=== PATIENT | male | born 1985 | race Caucasian/White ===

== ENCOUNTER 2016-02-21 23:31 | Emergency (ER) | payer SELFPAY ==
[2016-02-22] MEDS ORDERED: NS 0.9% 1000 ML* 1,000 ML IV ONE (00:04)
[2016-02-22 00:37] LABS: Hematocrit 42 % (42-52); Hemoglobin 13.7 g/dl (14.0-18.0); Mean Corpuscular HGB Conc 33 g/dl (31-36); Mean Corpuscular Hemoglobin 28 pg (27-31); Mean Corpuscular Volume 83 fL (80-94); Mean Platelet Volume 9 um3 (7.4-10.4); Red Cell Distribution Width 15 % (10.5-15); White Blood Count 8.4 10^3/ul (3.5-10.8)
[2016-02-22 00:53] LABS: Albumin 4.3 g/dL (3.2-5.2); BUN/Creatinine Ratio 9.2 (8-20); Calcium 9.2 mg/dL (8.6-10.3); EGFR African American 157.1 (>60); EGFR Non-African American 122.1 (>60); Globulin 2.2 g/dL (2-4); Magnesium 2.1 mg/dL (1.9-2.7); Potassium 3.6 mmol/L (3.5-5.0); Total Bilirubin 0.5 mg/dL (0.2-1.0); Total Protein 6.5 g/dL (6.4-8.9)
[2016-02-22 01:35] VITALS: BP 114/67
--- NOTE | 2016-02-22 01:49 | ED ---
Maxim Cabral Benjamin, scribed for Niki Arnold MD on 02/22/16 at 0032 . Syncope/Near Syncope - HPI Summary HPI Summary: 30yo male who had a syncopal episode 60-90 minutes ago with unknown down time. While in a sofa shortly after in an argument. Pt reports minor frontal head trauma but reports no NA. Pt reports room spinning before the episode. Also reports dizziness and sinus infection 1 week ago, and leg weakness for couple of weeks. Pt has hx of brain tumor, which pt received 8 courses of radiation therapy and was told growth has stopped but never followed up since. Pt reports having syncopal episode once before 6 yrs ago while at rest. - History Of Current Complaint Chief Complaint: EDSyncope Time Seen by Provider: 02/22/16 00:03 Hx Obtained From: Patient Onset/Duration: Sudden Onset, Resolved Timing: Constant Context: Unwitnessed, Loss Of Consciousness Activity At Onset: At Rest Associated Head Trauma: Yes Aggravating Factor(s): Nothing Alleviating Factor(s): Spontaneous Resolution Associated Signs And Symptoms: Dizzy - 1 week ago - Allergies/Home Medications Allergies/Adverse Reactions: Allergies Allergy/AdvReac Type Severity Reaction Status Date / Time No Known Allergies Allergy Verified 02/21/16 23:49 Home Medications: Home Medications NK [No Home Medications Reported] 02/21/16 [History Confirmed 02/21/16] PMH/Surg Hx/FS Hx/Imm Hx Neurological History: Reports: Other Neuro Impairments/Disorders - brain tumor, s/p radiation therapy on 2008 - Cancer History Cancer Type, Location and Year: brain tumor 2008 Hx Radiation Therapy: Yes - 2008. brain tumor Infectious Disease History: No Infectious Disease History: Denies: Traveled Outside the [place] in Last 30 Days - Family History Known Family History: Positive: Hypertension Negative: Cardiac Disease, Diabetes - Social History Occupation: Employed Full-time Lives: Alone Alcohol Use: None Substance Use Type: Reports: Marijuana Substance Use Comment - Amount & Last Used: bowl a day Smoking Status (MU): Light Every Day Tobacco Smoker Review of Systems Constitutional: Negative Eyes: Negative ENT: Negative Cardiovascular: Negative Respiratory: Negative Gastrointestinal: Negative Genitourinary: Negative Musculoskeletal: Negative Skin: Negative Neurological: Other - dizziness Positive: Weakness - leg, Syncope Psychological: Normal All Other Systems Reviewed And Are Negative: Yes Physical Exam Triage Information Reviewed: Yes Vital Signs On Initial Exam: Initial Vitals Temp Pulse Resp BP Pulse Ox 99.8 F 65 17 119/73 98 02/21/16 23:45 02/21/16 23:45 02/21/16 23:45 02/21/16 23:45 02/21/16 23:45 Vital Signs Reviewed: Yes Appearance: Positive: Well-Appearing, No Pain Distress, Well-Nourished Skin: Positive: Warm, Skin Color Reflects Adequate Perfusion, Dry Head/Face: Positive: Normal Head/Face Inspection Eyes: Positive: EOMI, PAULA ENT: Positive: Pharynx normal, TMs normal Neck: Positive: Supple, Nontender Respiratory/Lung Sounds: Positive: Clear to Auscultation, Breath Sounds Present Cardiovascular: Positive: RRR Abdomen Description: Positive: Nontender, Soft Bowel Sounds: Positive: Present Musculoskeletal: Positive: Strength/ROM Intact Neurological: Positive: Sensory/Motor Intact, Alert, Oriented to Person Place, Time, CN Intact II-III Psychiatric: Positive: Affect/Mood Appropriate - [place] Coma Scale Coma Scale Total: 15 Diagnostics - Vital Signs Vital Signs Temp Pulse Resp BP Pulse Ox 02/21/16 23:59 56 13 99 02/21/16 23:50 74 12 119/73 99 02/21/16 23:45 99.8 F 65 17 119/73 98 - Laboratory Lab Results: Lab Results 02/22/16 02/22/16 Range/Units 00:25 00:25 WBC 8.4 (3.5-10.8) 10^3/ul RBC 5.00 (4.0-5.4) 10^6/ul Hgb 13.7 L (14.0-18.0) g/dl Hct 42 (42-52) % MCV 83 (80-94) fL MCH 28 (27-31) pg MCHC 33 (31-36) g/dl RDW 15 (10.5-15) % Plt Count 135 L (150-450) 10^3/ul MPV 9 (7.4-10.4) um3 Neut % (Auto) 71.6 (38-83) % Lymph % (Auto) 20.3 L (25-47) % [place] % (Auto) 6.5 (1-9) % Eos % (Auto) 1.0 (0-6) % Baso % (Auto) 0.6 (0-2) % Absolute Neuts (auto) 6.0 (1.5-7.7) 10^3/ul Absolute Lymphs (auto) 1.7 (1.0-4.8) 10^3/ul Absolute Monos (auto) 0.5 (0-0.8) 10^3/ul Absolute Eos (auto) 0.1 (0-0.6) 10^3/ul Absolute Basos (auto) 0.1 (0-0.2) 10^3/ul Absolute Nucleated RBC 0 10^3/ul Nucleated RBC % 0 Sodium 139 (133-145) mmol/L Potassium 3.6 (3.5-5.0) mmol/L Chloride 107 (101-111) mmol/L Carbon Dioxide 27 (22-32) mmol/L Anion Gap 5 (2-11) mmol/L BUN 7 (6-24) mg/dL Creatinine 0.76 (0.67-1.17) mg/dL Est GFR ( Amer) 157.1 (>60) Est GFR (Non-Af Amer) 122.1 (>60) BUN/Creatinine Ratio 9.2 (8-20) Glucose 94 (70-100) mg/dL Calcium 9.2 (8.6-10.3) mg/dL Magnesium 2.1 (1.9-2.7) mg/dL Total Bilirubin 0.50 (0.2-1.0) mg/dL AST 19 (13-39) U/L ALT 17 (7-52) U/L Alkaline Phosphatase 40 (34-104) U/L Total Protein 6.5 (6.4-8.9) g/dL Albumin 4.3 (3.2-5.2) g/dL Globulin 2.2 (2-4) g/dL Albumin/Globulin Ratio 2.0 (1-3) Result Diagrams: 02/22/16 00:25 02/22/16 00:25 Lab Statement: Any lab studies that have been ordered have been reviewed, and results considered in the medical decision making process. - CT CT Brain CT Interpretation: No Acute Changes CT Interpretation Completed By: Radiologist - EKG 2355 Cardiac Rate: NL EKG Rhythm: Sinus Rhythm ST Segment: Normal Ectopy: None Course/Dx Course Of Treatment: 30 yo with hx of benign brain tumor many years ago here with syncope after argument with girlfriend labs, ekg and ct brain normal. Pt is well appearing and feels fine - Diagnoses Provider Diagnoses: Syncope Discharge - Discharge Plan Condition: Stable Disposition: HOME Patient Education Materials: Syncope (ED) The documentation as recorded by the Maxim lyons Benjamin accurately reflects the service I personally performed and the decisions made by me, Niki Arnold MD.
--- NOTE | 2016-02-22 07:18 | RAD ---
INDICATION: Intracranial injury COMPARISON: None TECHNIQUE: Noncontrast axial source images were acquired from the skull base to the vertex. FINDINGS: Ventricles/sulci: The ventricles and cisterns are normal in size and configuration for age. Brain parenchyma: There is no focal parenchymal finding, evidence of intracranial mass, or intracranial mass effect. Intracranial hemorrhage:None. Extra-axial spaces: There are no abnormal extra axial fluid collections or evidence of extra-axial mass. Calvarium: There is no calvarial fracture or other calvarial abnormality. Scalp: There is no evidence of scalp or extracalvarial soft tissue abnormality. Paranasal sinuses/mastoid: The paranasal sinuses and mastoid air cells are clear. Other: None. IMPRESSION: NEGATIVE EXAMINATION
== END 2016-02-22 02:11 | disposition home or self-care (01) ==
LOC: ED 23:31
DX: R55 Syncope and collapse (principal); F17.200 Nicotine dependence, unspecified, uncomplicated
CPT/HCPCS: 36415; 70450; 80053; 83735; 85025; 93005; 99283

== ENCOUNTER 2016-03-01 12:31 | Inpatient (IN) | payer SELFPAY ==
[2016-03-01 13:01] LABS: Urine Bilirubin Negative (Negative); Urine Glucose Negative (Negative); Urine Nitrite Negative (Negative)
[2016-03-01 13:08] LABS: Hematocrit 45 % (42-52); Hemoglobin 14.9 g/dl (14.0-18.0); Mean Corpuscular HGB Conc 33 g/dl (31-36); Mean Corpuscular Hemoglobin 28 pg (27-31); Mean Corpuscular Volume 83 fL (80-94); Mean Platelet Volume 9 um3 (7.4-10.4); Red Blood Count 5.43 10^6/ul (4.0-5.4); Red Cell Distribution Width 14 % (10.5-15); White Blood Count 6.1 10^3/ul (3.5-10.8)
[2016-03-01 13:18] LABS: Benzodiazepine Urine Screen None Detected (None Detect)
[2016-03-01 13:23] LABS: ALT 14 U/L (7-52); AST 16 U/L (13-39); Albumin 4.7 g/dL (3.2-5.2); Alkaline Phosphatase 47 U/L (34-104); Anion Gap 4 mmol/L (2-11); BUN/Creatinine Ratio 14.8 (8-20); Blood Urea Nitrogen 12 mg/dL (6-24); CO2 Carbon Dioxide 28 mmol/L (22-32); Calcium 9.4 mg/dL (8.6-10.3); Chloride 107 mmol/L (101-111); EGFR African American 145.9 (>60); EGFR Non-African American 113.5 (>60); Globulin 2.3 g/dL (2-4); Glucose 105 mg/dL (70-100); Potassium 3.9 mmol/L (3.5-5.0); Sodium 139 mmol/L (133-145)
[2016-03-01 13:51] LABS: Acetaminophen < 15 mcg/mL; Alcohol < 10 mg/dL (<10); Salicylate < 2.50 mg/dL (<30)
[2016-03-01 14:00] LABS: TSH (Thyroid Stimulating Horm) 1.07 mcIU/mL (0.34-5.60)
[2016-03-01] MEDS ORDERED: Nicotine Inhaler* 10 MG AMP ONE (17:59)
[2016-03-01] MEDS ORDERED: Mouth Piece, Nicotine* 1 EACH CARTRIDGE ONE (17:59)
[2016-03-01] MEDS ORDERED: Nicotine GUM* 2 MG PO PRN (18:07)
[2016-03-01] MEDS ORDERED: LORazepam TAB(*) 1 MG PO ONE ×2 (18:09→21:00)
[2016-03-01] MEDS: Nicotine Inhaler* 10 MG AMP INH PRN (18:19)
[2016-03-01] MEDS: chlorproMAZINE TAB* 50 MG PO PRN (18:19)
--- NOTE | 2016-03-01 20:27 | ED ---
Tanya Cabral Janilya, scribed for Niki Arnold MD on 03/01/16 at 1540 . Psychiatric Complaint - HPI Summary HPI Summary: A 30 y/o male came in to [facility] for a psychiatric complaint. Pt was sent here for evaluation by [facility]. Pt had prior suicidal attempts in the past w/ overdose and gun use. However, pt now states that he does not feel suicidal. Pt denies hearing voices. There are no guns in the house. SHx tobacco use, but he has recently quit. - History Of Current Complaint Chief Complaint: EDMentalHealth Time Seen by Provider: 03/01/16 12:37 Hx Obtained From: Patient Onset/Duration: Gradual Onset, Lasting Days, Still Present Timing: Constant Severity Initially: Moderate Severity Currently: Moderate Character: Anxious Aggravating Factor(s): Nothing Alleviating Factor(s): Nothing Associated Signs And Symptoms: Negative: Hallucinating Related History: Positive For: Prior Psychiatric Issues Has Suicidal: Denies: Thoughts, With A Plan Has Homicidal: Denies: Thoughts, With A Plan - Risk Factor(s) Completed Suicide Risk Factors: Male, Past Suicide Attempt - Allergies/Home Medications Allergies/Adverse Reactions: Allergies Allergy/AdvReac Type Severity Reaction Status Date / Time No Known Allergies Allergy Verified 02/21/16 23:49 PMH/Surg Hx/FS Hx/Imm Hx Respiratory History: Reports: Hx Asthma Neurological History: Reports: Other Neuro Impairments/Disorders - brain tumor, s/p radiation therapy on 2008 Psychiatric History: Reports: Hx Suicide Attempt - Cancer History Cancer Type, Location and Year: brain tumor 2008 Hx Radiation Therapy: Yes - 2008. brain tumor Infectious Disease History: No Infectious Disease History: Denies: Traveled Outside the [place] in Last 30 Days - Family History Known Family History: Positive: Hypertension Negative: Cardiac Disease, Diabetes - Social History Occupation: Employed Full-time - cook Lives: With Family - parents Alcohol Use: None Substance Use Type: Reports: Marijuana Substance Use Comment - Amount & Last Used: bowl a day Smoking Status (MU): Light Every Day Tobacco Smoker Review of Systems Negative: Fever Psychological: Other - SI and suicide attempts this past month Positive: Anxious All Other Systems Reviewed And Are Negative: Yes Physical Exam Triage Information Reviewed: Yes Vital Signs On Initial Exam: Initial Vitals Temp Pulse Resp BP Pulse Ox 98.7 F 52 16 123/72 98 03/01/16 13:25 03/01/16 13:25 03/01/16 13:25 03/01/16 13:25 03/01/16 13:25 Vital Signs Reviewed: Yes Appearance: Positive: Well-Appearing, No Pain Distress Skin: Positive: Warm, Skin Color Reflects Adequate Perfusion, Dry Eyes: Positive: EOMI, PAULA ENT: Positive: Pharynx normal, TMs normal Neck: Positive: Supple, Nontender Respiratory/Lung Sounds: Positive: Clear to Auscultation, Breath Sounds Present. Negative: Rales, Rhonchi - no wheezes Cardiovascular: Positive: RRR. Negative: Murmur, Rub - no gallops Abdomen Description: Positive: Nontender, Soft. Negative: Distended, Guarding - no rebound Bowel Sounds: Positive: Present Musculoskeletal: Positive: Strength/ROM Intact. Negative: Edema Left, Edema Right Neurological: Positive: Sensory/Motor Intact, Alert, Oriented to Person Place, Time, CN Intact II-III Psychiatric: Positive: Affect/Mood Appropriate - [place] Coma Scale Coma Scale Total: 15 Diagnostics - Vital Signs Vital Signs Temp Pulse Resp BP Pulse Ox 03/01/16 13:25 98.7 F 52 16 123/72 98 - Laboratory Lab Results: Lab Results 03/01/16 03/01/16 03/01/16 Range/Units 12:37 12:37 12:50 WBC 6.1 (3.5-10.8) 10^3/ul RBC 5.43 H (4.0-5.4) 10^6/ul Hgb 14.9 (14.0-18.0) g/dl Hct 45 (42-52) % MCV 83 (80-94) fL MCH 28 (27-31) pg MCHC 33 (31-36) g/dl RDW 14 (10.5-15) % Plt Count 149 L (150-450) 10^3/ul MPV 9 (7.4-10.4) um3 Neut % (Auto) 72.7 (38-83) % Lymph % (Auto) 17.1 L (25-47) % [place] % (Auto) 8.6 (1-9) % Eos % (Auto) 0.9 (0-6) % Baso % (Auto) 0.7 (0-2) % Absolute Neuts (auto) 4.5 (1.5-7.7) 10^3/ul Absolute Lymphs (auto) 1.1 (1.0-4.8) 10^3/ul Absolute Monos (auto) 0.5 (0-0.8) 10^3/ul Absolute Eos (auto) 0.1 (0-0.6) 10^3/ul Absolute Basos (auto) 0 (0-0.2) 10^3/ul Absolute Nucleated RBC 0 10^3/ul Nucleated RBC % 0 Sodium (133-145) mmol/L Potassium (3.5-5.0) mmol/L Chloride (101-111) mmol/L Carbon Dioxide (22-32) mmol/L Anion Gap (2-11) mmol/L BUN (6-24) mg/dL Creatinine (0.67-1.17) mg/dL Est GFR ( Amer) (>60) Est GFR (Non-Af Amer) (>60) BUN/Creatinine Ratio (8-20) Glucose (70-100) mg/dL Calcium (8.6-10.3) mg/dL Total Bilirubin (0.2-1.0) mg/dL AST (13-39) U/L ALT (7-52) U/L Alkaline Phosphatase (34-104) U/L Total Protein (6.4-8.9) g/dL Albumin (3.2-5.2) g/dL Globulin (2-4) g/dL Albumin/Globulin Ratio (1-3) TSH (0.34-5.60) mcIU/mL Urine Color Yellow Urine Appearance Clear Urine pH 7.0 (5-9) Ur Specific [place] 1.019 (1.010-1.030) Urine Protein Negative (Negative) Urine Ketones Negative (Negative) Urine Blood Negative (Negative) Urine Nitrate Negative (Negative) Urine Bilirubin Negative (Negative) Urine Urobilinogen Negative (Negative) Ur Leukocyte Esterase Negative (Negative) Urine Glucose Negative (Negative) Salicylates (<30) mg/dL Urine Opiates Screen None detected (None Detect) Acetaminophen mcg/mL Ur Barbiturates Screen None detected (None Detect) Ur Phencyclidine Scrn None detected (None Detect) Ur Amphetamines Screen None detected (None Detect) U Benzodiazepines Scrn None detected (None Detect) Urine Cocaine Screen None detected (None Detect) U Cannabinoids Screen Presumptive positive H (None Detect) Serum Alcohol (<10) mg/dL 03/01/16 Range/Units 12:50 WBC (3.5-10.8) 10^3/ul RBC (4.0-5.4) 10^6/ul Hgb (14.0-18.0) g/dl Hct (42-52) % MCV (80-94) fL MCH (27-31) pg MCHC (31-36) g/dl RDW (10.5-15) % Plt Count (150-450) 10^3/ul MPV (7.4-10.4) um3 Neut % (Auto) (38-83) % Lymph % (Auto) (25-47) % [place] % (Auto) (1-9) % Eos % (Auto) (0-6) % Baso % (Auto) (0-2) % Absolute Neuts (auto) (1.5-7.7) 10^3/ul Absolute Lymphs (auto) (1.0-4.8) 10^3/ul Absolute Monos (auto) (0-0.8) 10^3/ul Absolute Eos (auto) (0-0.6) 10^3/ul Absolute Basos (auto) (0-0.2) 10^3/ul Absolute Nucleated RBC 10^3/ul Nucleated RBC % Sodium 139 (133-145) mmol/L Potassium 3.9 (3.5-5.0) mmol/L Chloride 107 (101-111) mmol/L Carbon Dioxide 28 (22-32) mmol/L Anion Gap 4 (2-11) mmol/L BUN 12 (6-24) mg/dL Creatinine 0.81 (0.67-1.17) mg/dL Est GFR ( Amer) 145.9 (>60) Est GFR (Non-Af Amer) 113.5 (>60) BUN/Creatinine Ratio 14.8 (8-20) Glucose 105 H (70-100) mg/dL Calcium 9.4 (8.6-10.3) mg/dL Total Bilirubin 0.30 (0.2-1.0) mg/dL AST 16 (13-39) U/L ALT 14 (7-52) U/L Alkaline Phosphatase 47 (34-104) U/L Total Protein 7.0 (6.4-8.9) g/dL Albumin 4.7 (3.2-5.2) g/dL Globulin 2.3 (2-4) g/dL Albumin/Globulin Ratio 2.0 (1-3) TSH 1.07 (0.34-5.60) mcIU/mL Urine Color Urine Appearance Urine pH (5-9) Ur Specific [place] (1.010-1.030) Urine Protein (Negative) Urine Ketones (Negative) Urine Blood (Negative) Urine Nitrate (Negative) Urine Bilirubin (Negative) Urine Urobilinogen (Negative) Ur Leukocyte Esterase (Negative) Urine Glucose (Negative) Salicylates < 2.50 (<30) mg/dL Urine Opiates Screen (None Detect) Acetaminophen < 15 mcg/mL Ur Barbiturates Screen (None Detect) Ur Phencyclidine Scrn (None Detect) Ur Amphetamines Screen (None Detect) U Benzodiazepines Scrn (None Detect) Urine Cocaine Screen (None Detect) U Cannabinoids Screen (None Detect) Serum Alcohol < 10 (<10) mg/dL Result Diagrams: 03/01/16 12:50 03/01/16 12:50 Lab Statement: Any lab studies that have been ordered have been reviewed, and results considered in the medical decision making process. Course/Dx - Course Course Of Treatment: Pt is admitted as a medical hold in stable condition with the diagnosis of depression and suicidal ideations - Differential Dx/Clinical Impression Provider Diagnosis: Suicidal ideations, Depression Discharge - Discharge Plan Condition: Stable Disposition: OTHER Discharge Disposition Comment: Singed out to Dr. mini MADDEN. Referrals: Michaela Ayon MD [Primary Care Provider] - The documentation as recorded by the Tanya lyons Janilya accurately reflects the service I personally performed and the decisions made by me, Niki Arnold MD.
[2016-03-02] MEDS ORDERED: chlorproMAZINE TAB* 25 MG ONE ×2 (12:02→12:05)
[2016-03-02] MEDS: chlorproMAZINE TAB* 50 MG PO PRN ×2 (12:11→22:19)
[2016-03-02] MEDS ORDERED: Mouth Piece, Nicotine* 1 EACH CARTRIDGE ONE (15:44)
[2016-03-02] MEDS: Nicotine Inhaler* 10 MG AMP INH PRN (15:44)
[2016-03-02] MEDS ORDERED: Al Hydrox/Mg Hydrox/Simet LIQ* 30 ML UDC PO PRN (16:23)
[2016-03-02] MEDS ORDERED: Acetaminophen TAB* 325 MG PO PRN (16:23)
[2016-03-02] MEDS: Nicotine Patch Removal NOTE PATCH OFF SCH (21:57)
[2016-03-03] MEDS: Nicotine Inhaler* 10 MG AMP INH PRN ×2 (08:23→16:12)
[2016-03-03] MEDS: Nicotine PATCH 21 MG/24 HR* PATCH TRANSDERM SCH (08:25)
[2016-03-03] MEDS: Vitamin THERAPEUTIC TAB PO SCH (08:25)
--- NOTE | 2016-03-03 11:28 | PN ---
[facility]: Group Therapy Note - Service Type Service Type: [id number] Group Psychotherapy - Cognitive Behavioral Group Therapy ( CBT):Patient was attentive and participatory in CBT programming this morning, and remained in good behavioral control. Patient expressed positive insights regarding relevant treatment interventions and goals.
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
[2016-03-03] MEDS ORDERED: traZODone TAB* 50 MG TAB PO PRN (16:03)
[2016-03-03] MEDS: Citalopram TAB* 20 MG PO SCH (16:12)
[2016-03-03] MEDS: chlorproMAZINE TAB* 50 MG PO PRN (20:40)
[2016-03-03] MEDS: Nicotine Patch Removal NOTE PATCH OFF SCH (21:39)
[2016-03-04 07:32] VITALS: BP 123/68
[2016-03-04] MEDS: Citalopram TAB* 20 MG PO SCH (08:06)
[2016-03-04] MEDS: Nicotine PATCH 21 MG/24 HR* PATCH TRANSDERM SCH (08:06)
[2016-03-04] MEDS: Vitamin THERAPEUTIC TAB PO SCH (08:06)
[2016-03-04] MEDS: Nicotine Inhaler* 10 MG AMP INH PRN (09:17)
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
== END 2016-03-04 13:25 | disposition home or self-care (01) | DRG 882 ==
LOC: ED 12:31 → BSU 03-02 14:10
PROVIDERS: ADMIT Psychiatry & Neurology Psychiatry; ATTEND Psychiatry & Neurology Psychiatry
PROC: GZHZZZZ Group Psychotherapy (ICD-10-PCS; principal; 2016-03-02)
DX: F43.25 Adjustment disorder with mixed disturbance of emotions and conduct (principal); F32.9 Major depressive disorder, single episode, unspecified; F12.90 Cannabis use, unspecified, uncomplicated; J45.909 Unspecified asthma, uncomplicated; F17.200 Nicotine dependence, unspecified, uncomplicated; Z82.49 Family history of ischemic heart disease and other diseases of the circulatory system
CPT/HCPCS: 36415; 80053; 80307; 80320; 80329; 81003; 84443; 85025; 90853; 99222; 99238; 99285; 99406; A9270-GY; G0480

== ENCOUNTER 2016-06-24 11:52 | Emergency (ER) | payer SELFPAY ==
--- NOTE | 2016-06-24 14:19 | RAD ---
Indication: Right groin swelling and pain. Real-time sonography of the right inguinal regions are noted. Several lymph nodes with a fatty hilum is noted. 3 lymph nodes are noted. Most inferiorly is a lymph node measuring 23 x 13 x 16 mm. This demonstrates a fatty hilum. Additional more superior lymph node measures 25 x 0.8 x 1.6 cm. Most superiorly is an additional lymph node measuring 1.7 x 0.5 x 0.8 cm. These are consistent with reactive lymph nodes. IMPRESSION: Mildly enlarged likely reactive lymph nodes in the right inguinal region.
--- NOTE | 2016-06-24 14:57 | ED ---
Lower Extremity - HPI Summary HPI Summary: Patient presents with pain and swelling in his right groin that has become painful. He denies known trauma or recent illness. He has not had fevers, chills , B/V/D or constipation. No urinary symptoms, no history of hernia or increased heavy lifting. No testicular pain or penile drainage. - History of Current Complaint Chief Complaint: EDGeneral Stated Complaint: PAIN,SWELLING IN GROIN Time Seen by Provider: 06/24/16 12:53 Hx Obtained From: Patient Mechanism Of Injury: Unknown Onset/Duration: Days Severity Initially: Mild Severity Currently: Severe Pain Intensity: 8 Timing: Constant Location: Is Discrete @ - right groin Character Of Pain: Dull, Aching Associated Signs And Symptoms: Positive: Swelling Aggravating Factor(s): Movement Able to Bear Weight: Yes - Allergies/Home Medications Allergies/Adverse Reactions: Allergies Allergy/AdvReac Type Severity Reaction Status Date / Time No Known Allergies Allergy Verified 02/21/16 23:49 PMH/Surg Hx/FS Hx/Imm Hx Respiratory History: Reports: Hx Asthma - denies tx: states that when he was younger he had s/s of asthma attacks Neurological History: Reports: Hx Migraine - states he occasionally gets migraines- tx w/ apap and hot showers, Other Neuro Impairments/Disorders - brain tumor, s/p radiation therapy on 2008 Psychiatric History: Reports: Hx Suicide Attempt Denies: Hx Eating Disorder - Cancer History Cancer Type, Location and Year: brain tumor 2008 Hx Radiation Therapy: Yes - 2008. brain tumor Infectious Disease History: No Infectious Disease History: Denies: Traveled Outside the [place] in Last 30 Days - Family History Known Family History: Positive: Hypertension Negative: Cardiac Disease, Diabetes - Social History Occupation: Employed Part-time Lives: With Family Alcohol Use: states that he is currently a non-drinker as of 02-08-16 for New Years Substance Use Type: Reports: Marijuana Substance Use Comment - Amount & Last Used: reports daily marijuana use Smoking Status (MU): Heavy Every Day Tobacco Smoker Cessation Counseling: Patient Advised to Stop Review of Systems Negative: Fever, Chills Negative: Sore Throat, Ear Ache Negative: Abdominal Pain, Vomiting, Diarrhea, Nausea Positive: no symptoms reported Positive: Edema - right groin. Negative: Myalgia Negative: Bruising Negative: Weakness, Paresthesia All Other Systems Reviewed And Are Negative: Yes Physical Exam Triage Information Reviewed: Yes Vital Signs On Initial Exam: Initial Vitals Temp Pulse Resp BP Pulse Ox 99.5 F 78 18 111/71 100 06/24/16 11:55 06/24/16 11:55 06/24/16 11:55 06/24/16 11:55 06/24/16 11:55 Vital Signs Reviewed: Yes Appearance: Positive: Well-Appearing, Pain Distress, Thin Skin: Positive: Warm, Skin Color Reflects Adequate Perfusion, Dry, Soft Head/Face: Positive: Normal Head/Face Inspection Eyes: Positive: EOMI, PAULA, Conjunctiva Clear ENT: Positive: Hearing grossly normal Respiratory/Lung Sounds: Positive: Breath Sounds Present Cardiovascular: Positive: RRR Abdomen Description: Positive: Nontender, Soft Bowel Sounds: Positive: Present Male Genital Exam: Positive: normal genitalia, inguinal tenderness - right. Negative: epididymal tenderness, erythema, scrotum tenderness (R), scrotum tenderness (L), testicular tenderness (R), testicular tenderness (L), urethral discharge Musculoskeletal: Positive: Strength/ROM Intact Neurological: Positive: Sensory/Motor Intact, Alert, Oriented to Person Place, Time, NV Bundle Intact Distally, Normal Gait Diagnostics - Vital Signs Vital Signs Temp Pulse Resp BP Pulse Ox 06/24/16 13:18 99.5 F 78 18 111/71 100 06/24/16 11:55 99.5 F 78 18 111/71 100 - Laboratory Lab Statement: Any lab studies that have been ordered have been reviewed, and results considered in the medical decision making process. - Ultrasound No standard instances Ultrasound Interpretation: Positive (See Comments) Ultrasound Interpretation Completed By: Radiologist - right inguinal lymph swelling Lower Extremity Course/Dx - Diagnoses Differential Diagnosis/HQI/PQRI: Positive: Arthritis, Bursitis, Cellulitis, Contusion, Infection, Sprain, Strain Provider Diagnoses: right inguinal lymphadenopathy Discharge - Discharge Plan Condition: Stable Disposition: HOME Patient Education Materials: Lymphadenopathy (ED) Referrals: Michaela Ayon MD [Primary Care Provider] - Additional Instructions: Please call your primary care providers office for an appointment this week for evaluation. Use ibuprofen 600mg three times daily with meals for the next 3-5 days, and elevate your pelvis above your heart to decrease swelling. Return to the emergency department if symptoms worsen.
[2016-06-24 15:01] VITALS: BP 112/69
== END 2016-06-24 15:06 | disposition home or self-care (01) ==
LOC: ED 11:52
DX: R59.1 Generalized enlarged lymph nodes (principal); R60.0 Localized edema
CPT/HCPCS: 99282

== ENCOUNTER 2016-09-18 11:40 | Emergency (ER) | payer SELFPAY ==
[2016-09-18] MEDS ORDERED: Aspirin Low Dose CHEW TAB* 81 MG PO ONE (11:50)
[2016-09-18 12:56] LABS: Hematocrit 44 % (42-52); Hemoglobin 14.8 g/dl (14.0-18.0); Mean Corpuscular HGB Conc 33 g/dl (31-36); Mean Corpuscular Hemoglobin 28 pg (27-31); Mean Corpuscular Volume 83 fL (80-94); Mean Platelet Volume 9 um3 (7.4-10.4); Red Blood Count 5.37 10^6/ul (4.0-5.4); Red Cell Distribution Width 14 % (10.5-15); White Blood Count 9.2 10^3/ul (3.5-10.8)
[2016-09-18 13:16] LABS: Albumin 4.5 g/dL (3.2-5.2); BUN/Creatinine Ratio 8.3 (8-20); Calcium 9.1 mg/dL (8.6-10.3); EGFR African American 138.9 (>60); Globulin 2.3 g/dL (2-4); Potassium 3.9 mmol/L (3.5-5.0); Total Bilirubin 0.6 mg/dL (0.2-1.0); Total Protein 6.8 g/dL (6.4-8.9)
[2016-09-18 13:26] LABS: T4 8.68 mcg/mL (6.09-12.23)
[2016-09-18 13:27] LABS: TSH (Thyroid Stimulating Horm) 0.85 mcIU/mL (0.34-5.60)
--- NOTE | 2016-09-18 13:40 | RAD ---
Indication: Chest pain. Single frontal view of the chest performed at 1210 hours was reviewed. No prior study is available for comparison. Hyperinflated lung hopper are noted. No mediastinal shift is noted. Heart is of normal size and configuration. Lung hopper are clear. IMPRESSION: NO ACTIVE CARDIOPULMONARY DISEASE IS NOTED.
[2016-09-18] MEDS ORDERED: Ketorolac INJ* 30 MG/ML 1 ML VIAL IV PUSH ONE (14:38)
[2016-09-18 15:38] VITALS: BP 122/74
--- NOTE | 2016-09-18 17:41 | ED ---
Tito Cabral Thomas, scribed for Thomas Maldonado MD on 09/18/16 at 1211 . HPI Chest Pain - HPI Summary HPI Summary: The pt is a 31 y/o M presenting to the ED c/o CP that began today at 05:00. The pain is rated 6/10. The pain is aggravated and alleviated by nothing. Pt additionally c/o numbness and tingling (on his arms, hands, cheeks, and underneath his face), SOB, palpitations (characterized as hard, faster and then slower), and vomiting (04:30). Pt denies cough and fevers. The patient is currently taking Lexapro. PMHx: asthma, depression, anxiety. PSHx: none. SHx: smoking (1 PPD), no alcohol use, marijuana use. FHx: HTN, DM, CHF, ID. He has never experienced chest pain like this before. He denies drinking excessive amounts of coffee, alcohol, or energy drinks recently. He had 2 cups of coffee this AM, which is normal for him. - History of Current Complaint Chief Complaint: EDChestPainROMI Time Seen by Provider: 09/18/16 11:50 Hx Obtained From: Patient, Family/Can Inspector - mother and father are in the room Onset/Duration: Started Hours Ago - onset 05:00 today, Still Present Timing: Constant Pain Intensity: 6 Pain Scale Used: 0-10 Numeric Aggravating Factor(s): Nothing Alleviating Factor(s): Nothing Associated Signs and Symptoms: Positive: Chest Pain, Numbness - on his arms, hands, cheeks, and underneath his face, Tingling - on his arms, hands, cheeks, and underneath his face, Shortness of Breath, Palpitations - characterizeds as hard and faster and then slower, Vomiting - today at 04:30. Negative: Fever, Cough - Additional Pertinent History Primary Care Physician: BELKYS - Allergy/Home Medications Allergies/Adverse Reactions: Allergies Allergy/AdvReac Type Severity Reaction Status Date / Time No Known Allergies Allergy Verified 02/21/16 23:49 PMH/Surg Hx/FS Hx/Imm Hx Previously Healthy: No Cardiovascular History: Denies: Hx Myocardial Infarction Respiratory History: Reports: Hx Asthma - denies tx: states that when he was younger he had s/s of asthma attacks Neurological History: Reports: Hx Migraine - states he occasionally gets migraines- tx w/ apap and hot showers Psychiatric History: Reports: Hx Anxiety, Hx Depression, Hx Suicide Attempt Denies: Hx Eating Disorder - Cancer History Cancer Type, Location and Year: none Hx Radiation Therapy: Yes - 2008. brain tumor Infectious Disease History: Denies: Traveled Outside the [place] in Last 30 Days - Family History Known Family History: Positive: Hypertension Negative: Cardiac Disease, Diabetes - Social History Alcohol Use: states that he is currently a non-drinker as of 02-08-16 for New Years Hx Substance Use: Yes Substance Use Type: Reports: Marijuana Substance Use Comment - Amount & Last Used: reports daily marijuana use Smoking Status (MU): Heavy Every Day Tobacco Smoker Review of Systems Constitutional: Negative Negative: Fever Positive: Palpitations - characterized as hard, faster and then slower, Chest Pain - 07/17, onset 05:00 this AM Positive: Shortness Of Breath. Negative: Cough Positive: Vomiting - 04:30 today Neurological: Other - POS: numbness and tingling (on his arms, hands, cheeks, and underneath his face) All Other Systems Reviewed And Are Negative: Yes Physical Exam - Summary Physical Exam Summary: VITAL SIGNS: Reviewed. GENERAL: ~Patient is a well-developed and nourished male who is lying comfortable in the stretcher. ~Patient is not in any acute respiratory distress. HEAD AND FACE: No signs of trauma. ~No ecchymosis, hematomas or skull depressions. No sinus tenderness. EYES: PERRLA, EOMI x 2, No injected conjunctiva, no nystagmus. EARS: Hearing grossly intact. Ear canals and tympanic membranes are within normal limits. MOUTH: Oropharynx within normal limits. NECK: Supple, trachea is midline, no adenopathy, no JVD, no carotid bruit, no c- spine tenderness, neck with full ROM. CHEST: Symmetric, no tenderness at palpation LUNGS: Clear to auscultation bilaterally. No wheezing or crackles. CVS: Regular rate and rhythm, S1 and S2 present, no murmurs or gallops appreciated. ABDOMEN: Soft, non-tender. No signs of distention. No rebound no guarding, and no masses palpated. Bowel sounds are normal. EXTREMITIES: FROM in all major joints, no edema, no cyanosis or clubbing. NEURO: Alert and oriented x 3. No acute neurological deficits. Speech is normal and follows commands. SKIN: Dry and warm Triage Information Reviewed: Yes Vital Signs On Initial Exam: Initial Vitals Temp Pulse Resp BP Pulse Ox 98.9 F 92 20 119/61 98 09/18/16 11:42 09/18/16 11:42 09/18/16 11:42 09/18/16 11:42 09/18/16 11:42 Vital Signs Reviewed: Yes Diagnostics - Vital Signs Vital Signs Temp Pulse Resp BP Pulse Ox 09/18/16 11:42 98.9 F 92 20 119/61 98 - Laboratory Lab Results: Lab Results 09/18/16 09/18/16 09/18/16 Range/Units 12:45 12:45 12:45 WBC 9.2 (3.5-10.8) 10^3/ul RBC 5.37 (4.0-5.4) 10^6/ul Hgb 14.8 (14.0-18.0) g/dl Hct 44 (42-52) % MCV 83 (80-94) fL MCH 28 (27-31) pg MCHC 33 (31-36) g/dl RDW 14 (10.5-15) % Plt Count 140 L (150-450) 10^3/ul MPV 9 (7.4-10.4) um3 Neut % (Auto) 83.7 H (38-83) % Lymph % (Auto) 11.7 L (25-47) % [place] % (Auto) 3.5 (1-9) % Eos % (Auto) 0.2 (0-6) % Baso % (Auto) 0.9 (0-2) % Absolute Neuts (auto) 7.7 (1.5-7.7) 10^3/ul Absolute Lymphs (auto) 1.1 (1.0-4.8) 10^3/ul Absolute Monos (auto) 0.3 (0-0.8) 10^3/ul Absolute Eos (auto) 0 (0-0.6) 10^3/ul Absolute Basos (auto) 0.1 (0-0.2) 10^3/ul Absolute Nucleated RBC 0.01 10^3/ul Nucleated RBC % 0.1 Sodium 138 (133-145) mmol/L Potassium 3.9 (3.5-5.0) mmol/L Chloride 107 (101-111) mmol/L Carbon Dioxide 25 (22-32) mmol/L Anion Gap 6 (2-11) mmol/L BUN 7 (6-24) mg/dL Creatinine 0.84 (0.67-1.17) mg/dL Est GFR ( Amer) 138.9 (>60) Est GFR (Non-Af Amer) 108.0 (>60) BUN/Creatinine Ratio 8.3 (8-20) Glucose 104 H (70-100) mg/dL Lactic Acid 0.7 (0.5-2.0) mmol/L Calcium 9.1 (8.6-10.3) mg/dL Total Bilirubin 0.60 (0.2-1.0) mg/dL AST 19 (13-39) U/L ALT 16 (7-52) U/L Alkaline Phosphatase 48 (34-104) U/L CK-MB (CK-2) 1.4 (0.6-6.3) ng/mL Troponin I 0.00 (<0.04) ng/mL B-Natriuretic Peptide ( - 100) pg/mL Total Protein 6.8 (6.4-8.9) g/dL Albumin 4.5 (3.2-5.2) g/dL Globulin 2.3 (2-4) g/dL Albumin/Globulin Ratio 2.0 (1-3) TSH 0.85 (0.34-5.60) mcIU/mL Thyroxine (T4) 8.68 (6.09-12.23) mcg/mL 09/18/16 Range/Units 12:45 WBC (3.5-10.8) 10^3/ul RBC (4.0-5.4) 10^6/ul Hgb (14.0-18.0) g/dl Hct (42-52) % MCV (80-94) fL MCH (27-31) pg MCHC (31-36) g/dl RDW (10.5-15) % Plt Count (150-450) 10^3/ul MPV (7.4-10.4) um3 Neut % (Auto) (38-83) % Lymph % (Auto) (25-47) % [place] % (Auto) (1-9) % Eos % (Auto) (0-6) % Baso % (Auto) (0-2) % Absolute Neuts (auto) (1.5-7.7) 10^3/ul Absolute Lymphs (auto) (1.0-4.8) 10^3/ul Absolute Monos (auto) (0-0.8) 10^3/ul Absolute Eos (auto) (0-0.6) 10^3/ul Absolute Basos (auto) (0-0.2) 10^3/ul Absolute Nucleated RBC 10^3/ul Nucleated RBC % Sodium (133-145) mmol/L Potassium (3.5-5.0) mmol/L Chloride (101-111) mmol/L Carbon Dioxide (22-32) mmol/L Anion Gap (2-11) mmol/L BUN (6-24) mg/dL Creatinine (0.67-1.17) mg/dL Est GFR ( Amer) (>60) Est GFR (Non-Af Amer) (>60) BUN/Creatinine Ratio (8-20) Glucose (70-100) mg/dL Lactic Acid (0.5-2.0) mmol/L Calcium (8.6-10.3) mg/dL Total Bilirubin (0.2-1.0) mg/dL AST (13-39) U/L ALT (7-52) U/L Alkaline Phosphatase (34-104) U/L CK-MB (CK-2) (0.6-6.3) ng/mL Troponin I (<0.04) ng/mL B-Natriuretic Peptide 16 ( - 100) pg/mL Total Protein (6.4-8.9) g/dL Albumin (3.2-5.2) g/dL Globulin (2-4) g/dL Albumin/Globulin Ratio (1-3) TSH (0.34-5.60) mcIU/mL Thyroxine (T4) (6.09-12.23) mcg/mL Result Diagrams: 09/18/16 12:45 09/18/16 12:45 Lab Statement: Any lab studies that have been ordered have been reviewed, and results considered in the medical decision making process. - Radiology CXR Xray Interpretation: No Acute Changes - NO ACTIVE CARDIOPULMONARY DISEASE IS NOTED Radiology Interpretation Completed By: Radiologist - EKG 11:54 Cardiac Rate: NL - 72 BPM EKG Interpretation: Normal sinus rhythm with no ST elevation. Chest Pain Course/Dx - Course Assessment/Plan: The pt is a 31 y/o M presenting to the ED c/o CP that began today at 05:00. The pain is rated 6/10. The pain is aggravated and alleviated by nothing. Pt additionally c/o numbness and tingling (on his arms, hands, cheeks, and underneath his face), SOB, palpitations (characterized as hard, faster and then slower), and vomiting (04:30). Pt denies cough and fevers. The patient is currently taking Lexapro. PMHx: asthma, depression, anxiety. PSHx: none. SHx: smoking (1 PPD), no alcohol use, marijuana use. FHx: HTN, DM, CHF, ID. He has never experienced chest pain like this before. He denies drinking excessive amounts of coffee, alcohol, or energy drinks recently. He had 2 cups of coffee this AM, which is normal for him. Test results are without any significant abnormalities; Troponin 0.00; CXR is negative for any acute intrathoracic disease. In the ED course the patient was given IV fluids, ASA, and Toradol. After these medications, the patients symptoms improved. The patient was observed in the ED for a couple hours and symptoms did not return. The patient is diagnosed with chest pain. The patient is hemodynamically stable and alert and oriented x3. I discussed all the findings and test results with the patient. Patient was instructed to return to the emergency room immediately if any of the symptoms return or worsens. Plan of care was discussed with the patient and understands and agrees. All questions were answered at patient satisfaction. There were no further complaints or concerns. - Chest Pain Differential Diagnosis/HQI/PQRI: Acute ID, ACS, Angina, CHF, Chest Wall, GI Disease, Lower Respiratory Infection - Diagnoses Provider Diagnoses: Chest pain Discharge - Discharge Plan Condition: Stable Disposition: HOME Patient Education Materials: Chest Pain (ED) Referrals: Michaela Ayon MD [Primary Care Provider] - 3 Days The documentation as recorded by the Tito lyons Thomas accurately reflects the service I personally performed and the decisions made by me, Thomas Maldonado MD.
== END 2016-09-18 15:59 | disposition home or self-care (01) ==
LOC: ED 11:40
DX: R07.9 Chest pain, unspecified (principal); R06.02 Shortness of breath; R00.2 Palpitations; R20.0 Anesthesia of skin; I51.7 Cardiomegaly; F17.210 Nicotine dependence, cigarettes, uncomplicated
CPT/HCPCS: 36415; 71010; 80053; 82553; 83605; 83880; 84436; 84443; 84484; 85025; 93005; 96374; 99283; A9270-GY; J1885

== ENCOUNTER 2016-10-22 03:55 | Emergency (ER) | payer SELFPAY ==
[2016-10-22 05:13] VITALS: BP 118/70
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
[2016-10-22 06:09] LABS: Hematocrit 38 % (42-52); Hemoglobin 12.8 g/dl (14.0-18.0); Mean Corpuscular HGB Conc 34 g/dl (31-36); Mean Corpuscular Hemoglobin 28 pg (27-31); Mean Corpuscular Volume 82 fL (80-94); Mean Platelet Volume 9 um3 (7.4-10.4); Red Blood Count 4.66 10^6/ul (4.0-5.4); Red Cell Distribution Width 14 % (10.5-15); White Blood Count 7.6 10^3/ul (3.5-10.8)
[2016-10-22 06:16] LABS: ALT 15 U/L (7-52); AST 19 U/L (13-39); Albumin 4.2 g/dL (3.2-5.2); Alkaline Phosphatase 44 U/L (34-104); Anion Gap 5 mmol/L (2-11); BUN/Creatinine Ratio 12.5 (8-20); Blood Urea Nitrogen 11 mg/dL (6-24); CO2 Carbon Dioxide 28 mmol/L (22-32); Calcium 8.9 mg/dL (8.6-10.3); Chloride 106 mmol/L (101-111); EGFR African American 131.7 (>60); EGFR Non-African American 102.4 (>60); Globulin 2.3 g/dL (2-4); Glucose 98 mg/dL (70-100); Potassium 3.6 mmol/L (3.5-5.0); Sodium 139 mmol/L (133-145); Total Protein 6.5 g/dL (6.4-8.9)
[2016-10-22 06:17] LABS: Acetaminophen < 15 mcg/mL; Alcohol < 10 mg/dL (<10); Salicylate < 2.50 mg/dL (<30)
[2016-10-22 06:26] LABS: TSH (Thyroid Stimulating Horm) 1.56 mcIU/mL (0.34-5.60)
--- NOTE | 2016-10-22 11:20 | CONSULT ---
Consult Consult: Mr. Jolley presented with anxiety and depression over a breakup. He was medically cleared on a [id number] shift and had a MHE. They felt he was safe to go home although they did offer a voluntary admission. He was D/C'd in stable condition with a diagnosis of situational depression/anxiety.
== END 2016-10-22 09:14 ==
LOC: ED 03:55
DX: F43.25 Adjustment disorder with mixed disturbance of emotions and conduct (principal); F17.200 Nicotine dependence, unspecified, uncomplicated; F43.21 Adjustment disorder with depressed mood
CPT/HCPCS: 36415; 80053; 80320; 80329; 84443; 85025; 99283; G0480

== ENCOUNTER → 2016-10-26 20:37 | Emergency (ER) | payer SELFPAY ==
[~2016-10-26 20:37] MED LIST: Acetaminophen TAB* 325 MG PO PRN; Al Hydrox/Mg Hydrox/Simet LIQ* 30 ML UDC PO PRN; Cephalexin CAP* 500 MG PO ONE; Cephalexin CAP* 500 MG PO SCH; HYDROcodone/ACETAMIN 5-325 MG* 1 TAB PO ONE; HYDROcodone/ACETAMIN 5-325 MG* 1 TAB PO PRN; Mouth Piece, Nicotine* 1 EACH CARTRIDGE INH ONE; Mouth Piece, Nicotine* 1 EACH CARTRIDGE ONE; Nicotine GUM* 2 MG PO PRN; Nicotine Inhaler* 10 MG AMP INH PRN; Nicotine Inhaler* 10 MG AMP ONE; Nicotine PATCH 21 MG/24 HR* PATCH TRANSDERM SCH; Nicotine Patch Removal NOTE PATCH OFF SCH; Vitamin THERAPEUTIC TAB PO SCH; traZODone TAB* 50 MG TAB PO ONE; traZODone TAB* 50 MG TAB PO SCH
[2016-10-26 21:40] LABS: Hematocrit 38 % (42-52); Hemoglobin 13.1 g/dl (14.0-18.0); Mean Corpuscular HGB Conc 34 g/dl (31-36); Mean Corpuscular Hemoglobin 28 pg (27-31); Mean Corpuscular Volume 81 fL (80-94); Mean Platelet Volume 8 um3 (7.4-10.4); Red Blood Count 4.75 10^6/ul (4.0-5.4); Red Cell Distribution Width 14 % (10.5-15)
[2016-10-26 21:46] LABS: Urine Nitrite Negative (Negative)
[2016-10-26 21:47] LABS: Urine Bilirubin Negative (Negative); Urine Glucose Negative (Negative)
[2016-10-26 21:53] LABS: ALT 9 U/L (7-52); AST 14 U/L (13-39); Albumin 4.3 g/dL (3.2-5.2); Alkaline Phosphatase 42 U/L (34-104); Anion Gap 4 mmol/L (2-11); Benzodiazepine Urine Screen None Detected (None Detect); Blood Urea Nitrogen 9 mg/dL (6-24); CO2 Carbon Dioxide 29 mmol/L (22-32); Calcium 9.1 mg/dL (8.6-10.3); Chloride 106 mmol/L (101-111); EGFR African American 128.3 (>60); EGFR Non-African American 99.8 (>60); Globulin 2.4 g/dL (2-4); Glucose 116 mg/dL (70-100); Potassium 3.8 mmol/L (3.5-5.0); Sodium 139 mmol/L (133-145); Total Protein 6.7 g/dL (6.4-8.9)
[2016-10-26 21:54] LABS: Acetaminophen < 15 mcg/mL; Alcohol < 10 mg/dL (<10); Salicylate < 2.50 mg/dL (<30)
[2016-10-26 22:01] LABS: TSH (Thyroid Stimulating Horm) 0.76 mcIU/mL (0.34-5.60)
[2016-10-26 22:14] LABS: Urine Bacteria Absent (Absent); Urine Sperm Present (Absent)
[2016-10-26 23:48] VITALS: BP 113/57
--- NOTE | 2016-10-27 10:55 | ED ---
Progress - Consult/PCP Time Called: 23:30 Course/Dx - Course Course Of Treatment: pt admitted in stable condition with adjustment disorder to mental health unit - Diagnoses Provider Diagnoses: Suicidal ideation
--- NOTE | 2016-10-27 15:21 | ED ---
Elvia Cabral Alfonso scribed for Ryan Soliz MD on 10/26/16 at 2307 . Psychiatric Complaint - HPI Summary HPI Summary: This patient is a 31 year old M presenting to [facility] accompanied by mother with a chief complaint of SI since a few days ago. Patient noted that he was dealing with some things and should get some help. The patient rates the pain 8 /10 in severity. Symptoms aggravated by stress. Symptoms alleviated by nothing. Patient reports lack of appetite, insomnia, and feeling hopeless and depressed. Patient denies suicidal plan. - History Of Current Complaint Chief Complaint: EDMentalHealth Time Seen by Provider: 10/26/16 20:59 Accompanied By: mother Hx Obtained From: Patient Onset/Duration: Gradual Onset, Lasting Days, Still Present Severity Initially: Severe Severity Currently: Severe Character: Depressed Aggravating Factor(s): Recent Stress Alleviating Factor(s): Nothing Associated Signs And Symptoms: Positive: Sleep Disturbance, Appetite Change Has Suicidal: Reports: Thoughts. Denies: With A Plan - Allergies/Home Medications Allergies/Adverse Reactions: Allergies Allergy/AdvReac Type Severity Reaction Status Date / Time No Known Allergies Allergy Verified 02/21/16 23:49 PMH/Surg Hx/FS Hx/Imm Hx Endocrine/Hematology History: Denies: Hx Diabetes Cardiovascular History: Denies: Hx Hypertension, Hx Myocardial Infarction Respiratory History: Reports: Hx Asthma - denies tx: states that when he was younger he had s/s of asthma attacks Neurological History: Reports: Hx Migraine - states he occasionally gets migraines- tx w/ apap and hot showers, Other Neuro Impairments/Disorders - brain tumor, s/p radiation therapy on 2008 Psychiatric History: Reports: Hx Anxiety, Hx Depression, Hx Suicide Attempt, Hx of Violent Episodes Against Others Denies: Hx Eating Disorder - Cancer History Cancer Type, Location and Year: none Hx Radiation Therapy: Yes - 2008. brain tumor Infectious Disease History: Unable to Obtain/Confirm Infectious Disease History: Denies: Traveled Outside the [place] in Last 30 Days - Family History Known Family History: Positive: Hypertension, Diabetes Negative: Cardiac Disease - Social History Alcohol Use: states that he is currently a non-drinker as of 02-08-16 for New Years Hx Substance Use: Yes Substance Use Type: Reports: Marijuana Substance Use Comment - Amount & Last Used: reports daily marijuana use Smoking Status (MU): Heavy Every Day Tobacco Smoker Review of Systems Negative: Fever, Chills Negative: Erythema Negative: Sore Throat Negative: Chest Pain Negative: Shortness Of Breath, Cough Negative: Abdominal Pain, Vomiting, Nausea Negative: dysuria, hematuria Negative: Myalgia, Edema Negative: Rash Negative: Headache Positive: Depressed, Other - SI without a plan, insomnia, lack of appetite, hopelessness All Other Systems Reviewed And Are Negative: Yes Physical Exam Triage Information Reviewed: Yes Vital Signs On Initial Exam: Initial Vitals Temp Pulse Resp BP Pulse Ox 98.1 F 63 17 112/64 99 10/26/16 20:42 10/26/16 20:42 10/26/16 20:42 10/26/16 20:42 10/26/16 20:42 Vital Signs Reviewed: Yes Appearance: Positive: Well-Appearing, No Pain Distress Skin: Positive: Warm, Skin Color Reflects Adequate Perfusion, Dry, Other - Frostproof Respiratory/Lung Sounds: Positive: Other - No respiratory distress, no tachypnea Abdomen Description: Negative: Distended Neurological: Positive: Alert, Oriented to Person Place, Time Psychiatric: Positive: Other - Flat affect Diagnostics - Vital Signs Vital Signs Temp Pulse Resp BP Pulse Ox 10/26/16 20:42 98.1 F 63 17 112/64 99 - Laboratory Lab Results: Lab Results 10/26/16 10/26/16 10/26/16 Range/Units 21:28 21:28 21:28 WBC 7.0 (3.5-10.8) 10^3/ul RBC 4.75 (4.0-5.4) 10^6/ul Hgb 13.1 L (14.0-18.0) g/dl Hct 38 L (42-52) % MCV 81 (80-94) fL MCH 28 (27-31) pg MCHC 34 (31-36) g/dl RDW 14 (10.5-15) % Plt Count 166 (150-450) 10^3/ul MPV 8 (7.4-10.4) um3 Neut % (Auto) 58.5 (38-83) % Lymph % (Auto) 28.8 (25-47) % [place] % (Auto) 9.7 H (1-9) % Eos % (Auto) 2.1 (0-6) % Baso % (Auto) 0.9 (0-2) % Absolute Neuts (auto) 4.1 (1.5-7.7) 10^3/ul Absolute Lymphs (auto) 2.0 (1.0-4.8) 10^3/ul Absolute Monos (auto) 0.7 (0-0.8) 10^3/ul Absolute Eos (auto) 0.1 (0-0.6) 10^3/ul Absolute Basos (auto) 0.1 (0-0.2) 10^3/ul Absolute Nucleated RBC 0 10^3/ul Nucleated RBC % 0 Sodium 139 (133-145) mmol/L Potassium 3.8 (3.5-5.0) mmol/L Chloride 106 (101-111) mmol/L Carbon Dioxide 29 (22-32) mmol/L Anion Gap 4 (2-11) mmol/L BUN 9 (6-24) mg/dL Creatinine 0.90 (0.67-1.17) mg/dL Est GFR ( Amer) 128.3 (>60) Est GFR (Non-Af Amer) 99.8 (>60) BUN/Creatinine Ratio 10.0 (8-20) Glucose 116 H (70-100) mg/dL Calcium 9.1 (8.6-10.3) mg/dL Total Bilirubin 0.50 (0.2-1.0) mg/dL AST 14 (13-39) U/L ALT 9 (7-52) U/L Alkaline Phosphatase 42 (34-104) U/L Total Protein 6.7 (6.4-8.9) g/dL Albumin 4.3 (3.2-5.2) g/dL Globulin 2.4 (2-4) g/dL Albumin/Globulin Ratio 1.8 (1-3) TSH 0.76 (0.34-5.60) mcIU/mL Urine Color Urine Appearance Urine pH (5-9) Ur Specific [place] (1.010-1.030) Urine Protein (Negative) Urine Ketones (Negative) Urine Blood (Negative) Urine Nitrate (Negative) Urine Bilirubin (Negative) Urine Urobilinogen (Negative) Ur Leukocyte Esterase (Negative) Urine WBC (Auto) (Absent) Urine RBC (Auto) (Absent) Ur Squamous Epith Cells (Absent) Amorphous Crystals (Absent) Urine Bacteria (Absent) Urine Sperm (Absent) Urine Glucose (Negative) Salicylates < 2.50 (<30) mg/dL Urine Opiates Screen Presumptive positive H (None Detect) Acetaminophen < 15 mcg/mL Ur Barbiturates Screen None detected (None Detect) Ur Phencyclidine Scrn None detected (None Detect) Ur Amphetamines Screen None detected (None Detect) U Benzodiazepines Scrn None detected (None Detect) Urine Cocaine Screen None detected (None Detect) U Cannabinoids Screen Presumptive positive H (None Detect) Serum Alcohol < 10 (<10) mg/dL 10/26/16 Range/Units 21:28 WBC (3.5-10.8) 10^3/ul RBC (4.0-5.4) 10^6/ul Hgb (14.0-18.0) g/dl Hct (42-52) % MCV (80-94) fL MCH (27-31) pg MCHC (31-36) g/dl RDW (10.5-15) % Plt Count (150-450) 10^3/ul MPV (7.4-10.4) um3 Neut % (Auto) (38-83) % Lymph % (Auto) (25-47) % [place] % (Auto) (1-9) % Eos % (Auto) (0-6) % Baso % (Auto) (0-2) % Absolute Neuts (auto) (1.5-7.7) 10^3/ul Absolute Lymphs (auto) (1.0-4.8) 10^3/ul Absolute Monos (auto) (0-0.8) 10^3/ul Absolute Eos (auto) (0-0.6) 10^3/ul Absolute Basos (auto) (0-0.2) 10^3/ul Absolute Nucleated RBC 10^3/ul Nucleated RBC % Sodium (133-145) mmol/L Potassium (3.5-5.0) mmol/L Chloride (101-111) mmol/L Carbon Dioxide (22-32) mmol/L Anion Gap (2-11) mmol/L BUN (6-24) mg/dL Creatinine (0.67-1.17) mg/dL Est GFR ( Amer) (>60) Est GFR (Non-Af Amer) (>60) BUN/Creatinine Ratio (8-20) Glucose (70-100) mg/dL Calcium (8.6-10.3) mg/dL Total Bilirubin (0.2-1.0) mg/dL AST (13-39) U/L ALT (7-52) U/L Alkaline Phosphatase (34-104) U/L Total Protein (6.4-8.9) g/dL Albumin (3.2-5.2) g/dL Globulin (2-4) g/dL Albumin/Globulin Ratio (1-3) TSH (0.34-5.60) mcIU/mL Urine Color Yellow Urine Appearance Clear Urine pH 7 (5-9) Ur Specific [place] 1.100 H (1.010-1.030) Urine Protein 1+(30 mg/dl) H (Negative) Urine Ketones Negative (Negative) Urine Blood Negative (Negative) Urine Nitrate Negative (Negative) Urine Bilirubin Negative (Negative) Urine Urobilinogen Negative (Negative) Ur Leukocyte Esterase 1+ H (Negative) Urine WBC (Auto) Trace(0-5/hpf) (Absent) Urine RBC (Auto) Trace(0-2/hpf) (Absent) Ur Squamous Epith Cells Present H (Absent) Amorphous Crystals Present H (Absent) Urine Bacteria Absent (Absent) Urine Sperm Present H (Absent) Urine Glucose Negative (Negative) Salicylates (<30) mg/dL Urine Opiates Screen (None Detect) Acetaminophen mcg/mL Ur Barbiturates Screen (None Detect) Ur Phencyclidine Scrn (None Detect) Ur Amphetamines Screen (None Detect) U Benzodiazepines Scrn (None Detect) Urine Cocaine Screen (None Detect) U Cannabinoids Screen (None Detect) Serum Alcohol (<10) mg/dL Result Diagrams: 10/26/16 21:28 10/26/16 21:28 Lab Statement: Any lab studies that have been ordered have been reviewed, and results considered in the medical decision making process. Course/Dx - Course Assessment/Plan: This patient is a 31 year old M presenting to [facility] accompanied by mother with a chief complaint of SI since a few days ago. Patient noted that he was dealing with some things and should get some help. The patient rates the pain 8/10 in severity. Symptoms aggravated by stress. Symptoms alleviated by nothing. Patient reports lack of appetite, insomnia, and feeling hopeless and depressed. Patient denies suicidal plan. Patient is signed out at shift change, pending disposition, awaiting MHE. - Differential Dx/Clinical Impression Provider Diagnosis: Suicidal ideation Discharge - Discharge Plan Condition: Stable Disposition: OTHER Discharge Disposition Comment: Patient is signed out at shift change, pending disposition, awaiting MHE Referrals: Michaela Ayon MD [Primary Care Provider] - The documentation as recorded by the Elvia lyons Alfonso accurately reflects the service I personally performed and the decisions made by me, Ryan Soliz MD.
== END ==
LOC: ED 20:37
DX: R45.851 Suicidal ideations (principal); F32.9 Major depressive disorder, single episode, unspecified; G47.00 Insomnia, unspecified; R63.0 Anorexia
CPT/HCPCS: 36415; 80053; 80307; 80320; 80329; 81003; 81015; 84443; 85025; 87086; 99285; A9270-GY; G0480

== ENCOUNTER 2017-06-20 16:35 | Emergency (ER) | payer SELFPAY ==
[2017-06-20 16:44] VITALS: BP 111/67
--- NOTE | 2017-06-20 16:48 | UC ---
Dental HPI - HPI Summary HPI Summary: 32 yo male presents with tooth pain. He tells me that he knows he has bad teeth and several fractured teeth. He hates dentists and has not seen one in a very long time. This morning he developed 10/10 pain to a tooth in his right upper mouth. Taking naproxen with no relief. Ice is helping. Able to eat and drink, but does have significant pain. Denies fever/chills. - History of Current Complaint Chief Complaint: UCDentalProblem Stated Complaint: TOOTH ACHE Time Seen by Provider: 06/20/17 16:48 Hx Obtained From: Patient Onset/Duration: Sudden Onset Severity: Severe Pain Intensity: 10 Pain Scale Used: 0-10 Numeric - Allergies/Home Medications Allergies/Adverse Reactions: Allergies Allergy/AdvReac Type Severity Reaction Status Date / Time No Known Allergies Allergy Verified 06/20/17 16:44 Home Medications: Home Medications Amoxicillin 500 mg PO BID 06/20/17 [History Confirmed 06/20/17] Naproxen Sodium [Naproxen 220 mg] 440 06/20/17 [History] PMH/Surg Hx/FS Hx/Imm Hx - Additional Past Medical History Additional PMH: None Previously Healthy: Yes - Surgical History Surgical History: Yes Surgery Procedure, Year, and Place: rt 4th and 5th fingers - Family History Known Family History: Positive: Hypertension, Diabetes Negative: Cardiac Disease - Social History Occupation: Employed Full-time Lives: With Family Alcohol Use: Rare Substance Use Type: Marijuana Substance Use Comment - Amount & Last Used: monthly Smoking Status (MU): Heavy Every Day Tobacco Smoker Type: Cigarettes - Immunization History Most Recent Influenza Vaccination: has not received Most Recent Tetanus Shot: utd Most Recent Pneumonia Vaccination: n/a Review of Systems Constitutional: Negative Skin: Negative ENT: Dental Pain Respiratory: Negative Cardiovascular: Negative Neurovascular: Negative Neurological: Negative Psychological: Negative All Other Systems Reviewed And Are Negative: Yes Physical Exam - Summary Physical Exam Summary: GENERAL: NAD. WDWN. Mild pain distress. Applying ice pack to right face SKIN: No rashes, sores, lesions, or open wounds. HEENT: Head: AT/NC Nose: Nasal mucosa pink and moist. NTTP maxillary and frontal sinus. Throat: Posterior oropharynx without erythema or tonsillar enlargement. No exudates. Uvula midline. No hoarse voice or muffled voice. NECK: Supple. Nontender. No lymphadenopathy. CHEST: No accessory muscle use. Breathing comfortably and in no distress. CV: RRR. Without m/r/g. Pulses intact. Brisk cap refill. NEURO: Alert. CN II-XII grossly intact. PSYCH: Age appropriate behavior. Triage Information Reviewed: Yes Vital Signs: Initial Vital Signs Temp 98.7 F 06/20/17 16:39 Pulse 59 06/20/17 16:39 Resp 18 06/20/17 16:39 BP 111/67 06/20/17 16:39 Pulse Ox 100 06/20/17 16:39 Dental: Positive: Percussion Tenderness @ - Tooth #2, Gross Decay/Caries @ - Throughout, Dental Fracture @ - Tooth #2. Negative: Abscess @, Cellulitis @, Cervical Lymphadenopathy, Bleeding Dental Complaint Course/Dx - Course Course Of Treatment: iSTOP: Reference #: [id number]. Suspect nerve inflammation on Tooth #2 due to fracture. Rx for amoxicillin to cover for infection. Lidocaine viscous and short supply of norco for use at bedtime. He has scheduled an appt with a dentist for this - strongly advised to keep this appointment. - Differential Dx/Diagnosis Provider Diagnoses: Tooth #2 dental fracture Discharge - Sign-Out/Discharge Documenting (check all that apply): Discharge/Admit/Transfer - Discharge Plan Condition: Stable Disposition: HOME Prescriptions: Amoxicillin PO (*) [Amoxicillin 500 MG CAP*] 500 mg PO Q12H #14 cap HYDROcodone/ACETAMIN 5-325 MG* [[place] 5-325 TAB*] 1 tab PO BEDTIME PRN #5 tab MDD 1 PRN Reason: Pain Lidocaine 2% VISCOUS* [Xylocaine 2% Viscous*] 15 ml SWISH SPIT Q6H PRN #250 ml PRN Reason: Pain Patient Education Materials: Toothache (ED) Forms: *Work Release Referrals: Michaela Ayon MD [Primary Care Provider] - Additional Instructions: If you develop a fever, shortness of breath, chest pain, new or worsening symptoms - please call your PCP or go to the ED. 1) May continue to take ibuprofen 2) Please keep your follow up scheduled for - Billing Disposition and Condition Condition: STABLE Disposition: HOME
== END 2017-06-20 17:00 | disposition home or self-care (01) ==
LOC: UCEAST 16:35
DX: K03.81 Cracked tooth (principal); K02.9 Dental caries, unspecified; F17.210 Nicotine dependence, cigarettes, uncomplicated
CPT/HCPCS: 99212; G0463

== ENCOUNTER 2017-10-10 12:24 | Emergency (ER) | payer SELFPAY ==
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
[2017-10-10 13:32] LABS: ABS Basophils 0 10^3/ul (0-0.2); ABS Eosinophils 0 10^3/ul (0-0.6); ABS Lymphocytes 1.2 10^3/ul (1.0-4.8); ABS Monocytes 0.5 10^3/ul (0-0.8); ABS Neutrophils 6.5 10^3/ul (1.5-7.7); ABS Nucleated RBC 0 10^3/ul; Eosinophil % 0.4 % (0-6); Hematocrit 44 % (42-52); Hemoglobin 14.8 g/dl (14.0-18.0); Lymphocyte % 14.2 % (25-47); Mean Corpuscular HGB Conc 34 g/dl (31-36); Mean Corpuscular Hemoglobin 28 pg (27-31); Mean Corpuscular Volume 83 fL (80-94); Mean Platelet Volume 8.7 um3 (7.4-10.4); Nucleated Red Blood Cells % 0.4; Platelet Count 143 10^3/ul (150-450); Red Blood Count 5.34 10^6/ul (4.00-5.40); Red Cell Distribution Width 14 % (10.5-15); White Blood Count 8.1 10^3/ul (3.5-10.8)
[2017-10-10 13:50] LABS: EGFR Non-African American 94.2 (>60)
[2017-10-10 14:05] LABS: Urine Appearance Clear; Urine Blood Negative (Negative); Urine Color Yellow; Urine Ketones Negative (Negative); Urine Protein 2+(100 mg/dL) (Negative); Urine Red Blood Cell Absent (Absent); Urine Specific Gravity 1.024 (1.010-1.030); Urine Urobilinogen Negative (Negative); Urine White Blood Cell Trace(0-5/hpf) (Absent)
[2017-10-10 17:36] VITALS: BP 107/66
== END 2017-10-10 17:35 | disposition home or self-care (01) ==
LOC: ED 12:24
DX: F43.21 Adjustment disorder with depressed mood (principal); F17.210 Nicotine dependence, cigarettes, uncomplicated; Z63.8 Other specified problems related to primary support group
CPT/HCPCS: 36415; 80053; 80307; 80320; 80329; 81003; 81015; 84443; 85025; 87086; 99284; G0480

== ENCOUNTER 2018-02-26 13:44 | Emergency (ER) | payer SELFPAY ==
[2018-02-26] MEDS ORDERED: Nicotine Inhaler* 10 MG AMP INH PRN (13:57)
[2018-02-26 14:18] LABS: ABS Basophils 0 10^3/ul (0-0.2); ABS Eosinophils 0 10^3/ul (0-0.6); ABS Lymphocytes 0.7 10^3/ul (1.0-4.8); ABS Monocytes 0.5 10^3/ul (0-0.8); ABS Neutrophils 7.1 10^3/ul (1.5-7.7); ABS Nucleated RBC 0 10^3/ul; Eosinophil % 0.2 %; Hematocrit 43 % (42-52); Hemoglobin 14.4 g/dl (14.0-18.0); Lymphocyte % 8.2 %; Mean Corpuscular HGB Conc 34 g/dl (31-36); Mean Corpuscular Hemoglobin 28 pg (27-31); Mean Corpuscular Volume 83 fL (80-94); Mean Platelet Volume 8.7 fL (7.4-10.4); Nucleated Red Blood Cells % 0; Platelet Count 138 10^3/ul (150-450); Red Blood Count 5.19 10^6/ul (4.00-5.40); Red Cell Distribution Width 14 % (10.5-15); White Blood Count 8.4 10^3/ul (3.5-10.8)
[2018-02-26 14:20] LABS: Urine Appearance Clear; Urine Color Straw
[2018-02-26 14:21] LABS: Urine Bilirubin Negative (Negative); Urine Blood Negative (Negative); Urine Ketones Negative (Negative); Urine Nitrite Negative (Negative); Urine Protein 1+(30 mg/dL) (Negative); Urine Urobilinogen Negative (Negative)
[2018-02-26 14:22] LABS: Urine Glucose Negative (Negative)
[2018-02-26 14:23] LABS: Urine Bacteria Absent (Absent); Urine Red Blood Cell Trace(0-2/hpf) (Absent); Urine White Blood Cell Trace(0-5/hpf) (Absent)
--- NOTE | 2018-02-26 14:31 | ED ---
Psychiatric Complaint - HPI Summary HPI Summary: A 32 y/o male brought in by ambulance presents to the ED c/o SI. As per triage, "SI with plan and attempt". According to the patient, he has been having thoughts of harming himself since he had a argument with his girlfriend earlier this morning. He said that he was kicked out of her house. He stated that he "didn't really have a plan, but had a knife". He noted that he also thought of sending his goodbyes to his family. Patient denies any auditory or visual hallucinations, HI, or any other medical conditions. Additionally denies any SOB , chest pain, or abdominal pain. Patient stated that he has somewhere to stay, but he is not sure how to get there because it is 20-30 miles away and he does not have a license. Patient does have a prior psychiatric history. PMHx of depression, no bipolar or schizophrenia. He stated that he was on medications for his depression, but stopped because of he has no health coverage. SHx of smoking marijuana, but haven't in a couple weeks due to his probation. He smokes marijuana for his lack of sleep. No ETOH. Consents to MHE. - History Of Current Complaint Chief Complaint: EDMentalHealth Time Seen by Provider: 02/26/18 13:46 Hx Obtained From: Patient Onset/Duration: Sudden Onset, Lasting Hours, Still Present Timing: Constant Severity Currently: None Character: Depressed Aggravating Factor(s): Recent Stress - ARGUMENT WITH HIS GIRLFRIEND THIS MORNING. Alleviating Factor(s): Nothing Associated Signs And Symptoms: Positive: Negative Related History: Positive For: Prior Psychiatric Issues - DEPRESSION Has Suicidal: Reports: Thoughts. Denies: With A Plan - NO DEFINITE PLAN, BUT HE HAD A KNIFE. Has Homicidal: Denies: Thoughts, With A Plan - Allergies/Home Medications Allergies/Adverse Reactions: Allergies Allergy/AdvReac Type Severity Reaction Status Date / Time No Known Allergies Allergy Verified 10/10/17 12:56 PMH/Surg Hx/FS Hx/Imm Hx Endocrine/Hematology History: Denies: Hx Diabetes Cardiovascular History: Denies: Hx Hypertension, Hx Myocardial Infarction Respiratory History: Reports: Hx Asthma - denies tx: states that when he was younger he had s/s of asthma attacks Neurological History: Reports: Hx Migraine - states he occasionally gets migraines- tx w/ apap and hot showers, Other Neuro Impairments/Disorders - brain tumor, s/p radiation therapy on 2008 Psychiatric History: Reports: Hx Anxiety, Hx Depression, Hx Suicide Attempt, Hx of Violent Episodes Against Others Denies: Hx Eating Disorder - Cancer History Cancer Type, Location and Year: Brain tumor, 2009 Hx Radiation Therapy: Yes - 2008. brain tumor - Surgical History Surgery Procedure, Year, and Place: rt 4th and 5th fingers Infectious Disease History: No Infectious Disease History: Denies: Traveled Outside the [place] in Last 30 Days - Family History Known Family History: Positive: Hypertension, Diabetes Negative: Cardiac Disease - Social History Alcohol Use: Rare Hx Substance Use: Yes Substance Use Type: Reports: Marijuana Substance Use Comment - Amount & Last Used: monthly Smoking Status (MU): Heavy Every Day Tobacco Smoker Type: Cigarettes Review of Systems Negative: Fever Negative: Chest Pain Negative: Shortness Of Breath Negative: Abdominal Pain Psychological: Other - NEGATIVE: HI; POSITIVE: SI Positive: Depressed, Other - NEGATIVE: AUDITORY AND VISUAL HALLUCINATIONS All Other Systems Reviewed And Are Negative: Yes Physical Exam - Summary Physical Exam Summary: GENERAL: Patient is a well-developed and nourished male who is lying comfortable in the stretcher. Patient is not in any acute respiratory distress. HEAD AND FACE: Normocephalic EYES: PERRLA, EOMI x 2. EARS: Hearing grossly intact. MOUTH: Oropharynx within normal limits. NECK: Supple, trachea is midline, no adenopathy, no JVD, no carotid bruit. CHEST: Symmetric, no tenderness at palpation LUNGS: Clear to auscultation bilaterally. No wheezing or crackles. CVS: Regular rate and rhythm, S1 and S2 present, no murmurs or gallops appreciated. ABDOMEN: Soft, non-tender. Bowel sounds are normal. No abdominal abnormal pulsations. EXTREMITIES: Full ROM in all major joints, no edema, no cyanosis or clubbing. NEURO: Alert and oriented x 3. No acute neurological deficits. Speech is normal and follows commands. SKIN: Dry and warm PSYCH: sad-affect, SI with no definite plan, no HI, no visible or auditory hallucinations. Triage Information Reviewed: Yes Vital Signs On Initial Exam: Initial Vitals Temp Pulse Resp BP Pulse Ox 97.3 F 65 16 119/67 99 02/26/18 14:18 02/26/18 14:18 02/26/18 14:18 02/26/18 14:18 02/26/18 14:18 Vital Signs Reviewed: Yes Diagnostics - Vital Signs Vital Signs Temp Pulse Resp BP Pulse Ox 02/26/18 14:18 97.3 F 65 16 119/67 99 - Laboratory Lab Results: Lab Results 02/26/18 Range/Units 14:04 WBC 8.4 (3.5-10.8) 10^3/ul RBC 5.19 (4.00-5.40) 10^6/ul Hgb 14.4 (14.0-18.0) g/dl Hct 43 (42-52) % MCV 83 (80-94) fL MCH 28 (27-31) pg MCHC 34 (31-36) g/dl RDW 14 (10.5-15) % Plt Count 138 L (150-450) 10^3/ul MPV 8.7 (7.4-10.4) fL Neut % (Auto) 85.2 % Lymph % (Auto) 8.2 % [place] % (Auto) 6.1 % Eos % (Auto) 0.2 % Baso % (Auto) 0.3 % Absolute Neuts (auto) 7.1 (1.5-7.7) 10^3/ul Absolute Lymphs (auto) 0.7 L (1.0-4.8) 10^3/ul Absolute Monos (auto) 0.5 (0-0.8) 10^3/ul Absolute Eos (auto) 0 (0-0.6) 10^3/ul Absolute Basos (auto) 0 (0-0.2) 10^3/ul Absolute Nucleated RBC 0 10^3/ul Nucleated RBC % 0 Result Diagrams: 02/26/18 14:04 02/26/18 14:05 Lab Statement: Any lab studies that have been ordered have been reviewed, and results considered in the medical decision making process. Re-Evaluation - Re-Evaluation First Eval Re-Evaluation Time: 14:31 Change: Unchanged Comment: PATIENT IS CLEARED FOR MHE. Course/Dx - Course Course Of Treatment: A 32 y/o male brought in by ambulance presents to the ED c/ o SI. According to the patient, he has been having thoughts of harming himself since he had a argument with his girlfriend earlier this morning. He said that he was kicked out of her house. He stated that he "didn't really have a plan, but had a knife". He noted that he also thought of sending his goodbyes to his family. Patient denies any auditory or visual hallucinations, HI, or any other medical conditions. Additionally denies any SOB, chest pain, or abdominal pain. Patient stated that he has somewhere to stay, but he is not sure how to get there because it is 20-30 miles away and he does not have a license. Patient does have a prior psychiatric history. No laboratory scans were done. Hematology , Chemistry, urinalysis and toxicology screens were done. No significant laboratory abnormalities were found. In the ED course, the patient received Nicotine. Per search marketing analyst, pt was cleared by Dr. Attila Metcalf, psych, for MHU Hold. Patient care was discussed with psychiatrist, Dr. Attila Metcalf, who recommended patient be kept on a MHU Hold with a diagnosis of depression. Patient will be signed out to Dr. Monika Lopez via Dr. Danny Mcconnell, pending MHU Hold and disposition, upon shift change on February 26, 2018 at 1900. Patient will be signed out with a diagnosis of depression. - Differential Dx/Clinical Impression Provider Diagnosis: Depression - Physician Notifications Discussed Care Of Patient With: Attila Metcalf Time Discussed With Above Provider: 17:45 Instructed by Provider To: Other - PATIENT WILL BE KEPT ON MHU HOLD. Discharge - Sign-Out/Discharge Documenting (check all that apply): Sign-Out Patient Signing out patient TO: Monika Lopez Receiving patient FROM: Danny Mcconnell - Discharge Plan Condition: Stable Referrals: No Primary Care Phys,NOPCP [Primary Care Provider] - - Billing Disposition and Condition Condition: STABLE - Attestation Statements Document Initiated by Laneibsilvia: Yes Documenting Scribe: Ernesto Francois Provider For Whom Yosi is Documenting (Include Credential): Danny Mcconnell MD Scribe Attestation: Ernesto Cabral scribed for Danny Mcconnell MD on 02/26/18 at 1801. Scribe Documentation Reviewed: Yes Provider Attestation: The documentation as recorded by the Ernesto lyons accurately reflects the service I personally performed and the decisions made by me, Danny Mcconnell MD Status of Scribe Document: Viewed
[2018-02-26 14:37] LABS: ALT 12 U/L (7-52); AST 18 U/L (13-39); Albumin 4.8 g/dL (3.2-5.2); Albumin/Globulin Ratio 2.2 (1-3); Alkaline Phosphatase 44 U/L (34-104); Anion Gap 5 mmol/L (2-11); BUN/Creatinine Ratio 9.9 (8-20); Blood Urea Nitrogen 10 mg/dL (6-24); CO2 Carbon Dioxide 29 mmol/L (22-32); Calcium 9.5 mg/dL (8.6-10.3); Chloride 109 mmol/L (101-111); EGFR Non-African American 86.7 (>60); Globulin 2.2 g/dL (2-4); Glucose 131 mg/dL (70-100); Potassium 3.9 mmol/L (3.5-5.0); Sodium 143 mmol/L (135-145)
[2018-02-26 14:41] LABS: Barbiturates Urine Screen None Detected (None Detect); Benzodiazepine Urine Screen None Detected (None Detect); Urine Cannabinoids Screen Presumptive Positive (None Detect)
[2018-02-26 14:58] LABS: Acetaminophen < 15 mcg/mL; Alcohol < 10 mg/dL (<10); Salicylate < 2.50 mg/dL (<30)
[2018-02-26 15:12] LABS: TSH (Thyroid Stimulating Horm) 0.87 mcIU/mL (0.34-5.60)
--- NOTE | 2018-02-26 19:08 | ED ---
Progress - Progress Note Progress Note: Patient is received as a sign out from Dr. Mcconnell to Dr. Lopez at 1900 02/26/18 shift change pending disposition of the mental health hold. No change in the status of this patient during the shift. The patient will be signed out to Dr. Dumont at 0700 02/27/18 shift change pending disposition of this mental health hold. - Consult/PCP Time Called: 14:18 Re-Evaluation - Re-Evaluation First Eval Re-Evaluation Time: 14:31 Change: Unchanged Comment: PATIENT IS CLEARED FOR MHE. Course/Dx - Course Course Of Treatment: Patient is received as a sign out from Dr. Mcconnell to Dr. Lopez at 1900 02/26/18 shift change pending disposition of the mental health hold. No change in the status of this patient during the shift. The patient will be signed out to Dr. Dumont at 0700 02/27/18 shift change pending disposition of this mental health hold. - Diagnoses Provider Diagnoses: Depression - Provider Notifications Time Discussed With Above Provider: 17:45 Instructed by Provider To: Other - PATIENT WILL BE KEPT ON MHU HOLD. Discharge - Sign-Out/Discharge Documenting (check all that apply): Sign-Out Patient Signing out patient TO: Norman Dumont Receiving patient FROM: Monika Lopez - Discharge Plan Condition: Stable Referrals: No Primary Care Phys,NOPCP [Primary Care Provider] - - Attestation Statements Document Initiated by Scribe: Yes Documenting Scribe: JESSICA BEAVERS Provider For Whom Scribe is Documenting (Include Credential): MONIKA LOPEZ MD Scribe Attestation: IJESSICA , scribed for MONIKA LOPEZ MD on 02/27/18 at 0622. Status of Scribe Document: Ready
[2018-02-26] MEDS ORDERED: hydrOXYzine HCL TAB* 50 MG PO ONE (22:21)
--- NOTE | 2018-02-27 07:25 | ED ---
Progress - Progress Note Progress Note: RECEIVING SIGN-OUT FROM DR. LOPEZ AT SHIFT CHANGE PENDING MHE. No change in the status of this patient during the shift. Re-Evaluation - Re-Evaluation First Eval Re-Evaluation Time: 14:31 Change: Unchanged Comment: PATIENT IS CLEARED FOR MHE. Course/Dx - Course Course Of Treatment: RECEIVING SIGN-OUT FROM DR. LOPEZ AT SHIFT CHANGE PENDING MHE. At 1018: Dr. Prakash, psych, approves discharge. Dx: adjustment disorder. - Diagnoses Provider Diagnoses: Adjustment disorder Discharge - Sign-Out/Discharge Documenting (check all that apply): Patient Departure - D/C, Receiving Sign-Out Receiving patient FROM: Monika Lopez - PENDING MHE - Discharge Plan Condition: Stable Disposition: HOME Patient Education Materials: Depression (ED) Referrals: No Primary Care Phys,NOPCP [Primary Care Provider] - - Billing Disposition and Condition Condition: STABLE Disposition: Home - Attestation Statements Document Initiated by Scribe: Yes Documenting Scribe: Herberth Moralez Provider For Whom Laneibsilvia is Documenting (Include Credential): Dr. Norman Dumont MD Scribe Attestation: I, Herberth Moralez, scribed for Dr. Norman Dumont MD on 02/27/18 at 1100. Scribe Documentation Reviewed: Yes Provider Attestation: The documentation as recorded by the Herberth lyons accurately reflects the service I personally performed and the decisions made by me, Dr. Norman uDmont MD Status of Scribe Document: Viewed
[2018-02-27] MEDS ORDERED: Mouth Piece, Nicotine* 1 EACH CARTRIDGE ONE (09:52)
[2018-02-27 10:45] VITALS: BP 119/60
== END 2018-02-27 11:08 | disposition home or self-care (01) ==
LOC: ED 13:44
DX: F32.9 Major depressive disorder, single episode, unspecified (principal); R45.851 Suicidal ideations; F17.210 Nicotine dependence, cigarettes, uncomplicated
CPT/HCPCS: 36415; 80053; 80307; 80320; 80329; 81003; 81015; 84443; 85025; 87086; 99285; A9270-GY; G0480

== ENCOUNTER 2018-03-09 08:43 | Emergency (ER) | payer SELFPAY ==
[2018-03-09] MEDS ORDERED: LORazepam TAB(*) 1 MG PO ONE (09:26)
[2018-03-09 09:27] LABS: ABS Basophils 0.1 10^3/ul (0-0.2); ABS Eosinophils 0 10^3/ul (0-0.6); ABS Monocytes 0.4 10^3/ul (0-0.8); ABS Neutrophils 4.4 10^3/ul (1.5-7.7); ABS Nucleated RBC 0 10^3/ul; Eosinophil % 0.6 %; Hematocrit 46 % (42-52); Hemoglobin 15.5 g/dl (14.0-18.0); Lymphocyte % 16.6 %; Mean Corpuscular HGB Conc 34 g/dl (31-36); Mean Corpuscular Hemoglobin 28 pg (27-31); Mean Corpuscular Volume 82 fL (80-94); Mean Platelet Volume 8.9 fL (7.4-10.4); Nucleated Red Blood Cells % 0; Platelet Count 165 10^3/ul (150-450); Red Blood Count 5.55 10^6/ul (4.00-5.40); Red Cell Distribution Width 14 % (10.5-15); White Blood Count 5.9 10^3/ul (3.5-10.8)
--- NOTE | 2018-03-09 09:29 | ED ---
HPI Chest Pain - HPI Summary HPI Summary: Patient is a 32-year-old male who presents emergency department for chest pain started about an hour ago when he woke. Patient describes pain as a crushing heavy sensation to the center of his chest. Associated symptoms of difficulty breathing. Patient notes history of anxiety and depression. Patient states that him and his significant other recently . Patient denies drug or alcohol use. He is not currently taking any medications. Denies family history of cardiac disease. No current modifying factors. Symptoms are moderate in severity. Patient states he is trying to get in with a therapist palpation. He denies suicidal or homicidal ideations. - History of Current Complaint Chief Complaint: EDChestPainROMI Time Seen by Provider: 03/09/18 09:04 Hx Obtained From: Patient Pain Intensity: 7 - Additional Pertinent History Primary Care Physician: BELKYS - Allergy/Home Medications Allergies/Adverse Reactions: Allergies Allergy/AdvReac Type Severity Reaction Status Date / Time No Known Allergies Allergy Verified 10/10/17 12:56 PMH/Surg Hx/FS Hx/Imm Hx Previously Healthy: Yes Endocrine/Hematology History: Denies: Hx Diabetes Cardiovascular History: Denies: Hx Hypertension, Hx Myocardial Infarction Respiratory History: Reports: Hx Asthma - denies tx: states that when he was younger he had s/s of asthma attacks Neurological History: Reports: Hx Migraine - states he occasionally gets migraines- tx w/ apap and hot showers, Other Neuro Impairments/Disorders - brain tumor, s/p radiation therapy on 2008 Psychiatric History: Reports: Hx Anxiety, Hx Depression, Hx Suicide Attempt, Hx of Violent Episodes Against Others Denies: Hx Eating Disorder - Cancer History Cancer Type, Location and Year: Brain tumor, 2008 Hx Radiation Therapy: Yes - 2008. brain tumor - Surgical History Surgery Procedure, Year, and Place: rt 4th and 5th fingers Infectious Disease History: No Infectious Disease History: Denies: Traveled Outside the [place] in Last 30 Days - Family History Known Family History: Positive: Hypertension, Diabetes Negative: Cardiac Disease - Social History Occupation: Unemployed Lives: With Family Alcohol Use: None Hx Substance Use: Yes Substance Use Type: Reports: Marijuana Substance Use Comment - Amount & Last Used: monthly Smoking Status (MU): Heavy Every Day Tobacco Smoker Type: Cigarettes Review of Systems Constitutional: Negative Negative: Fever, Chills Eyes: Negative ENT: Negative Positive: Chest Pain Positive: Shortness Of Breath. Negative: Cough Positive: Vomiting, Diarrhea, Nausea. Negative: Abdominal Pain Genitourinary: Negative Musculoskeletal: Negative Skin: Negative Neurological: Negative All Other Systems Reviewed And Are Negative: Yes Physical Exam Triage Information Reviewed: Yes Vital Signs On Initial Exam: Initial Vitals Temp Pulse Resp BP Pulse Ox 98.5 F 92 22 149/86 99 03/09/18 08:45 03/09/18 08:45 03/09/18 08:45 03/09/18 08:45 03/09/18 08:45 Vital Signs Reviewed: Yes Appearance: Positive: Thin - Pt. sitting up in bed shaking, very anxious. Nontoxic. Skin: Positive: Warm, Dry Head/Face: Positive: Normal Head/Face Inspection Eyes: Positive: Normal, EOMI, Conjunctiva Clear Neck: Positive: Supple Respiratory/Lung Sounds: Positive: Clear to Auscultation, Breath Sounds Present Cardiovascular: Positive: Normal, RRR Musculoskeletal: Positive: Normal, Strength/ROM Intact Neurological: Positive: Normal, Alert, Oriented to Person Place, Time, CN Intact II-III Psychiatric: Positive: Affect/Mood Appropriate Diagnostics - Vital Signs Vital Signs Temp Pulse Resp BP Pulse Ox 03/09/18 09:00 89 12 100 03/09/18 08:55 80 15 136/89 99 03/09/18 08:45 98.5 F 92 22 149/86 99 - Laboratory Lab Results: Lab Results 03/09/18 Range/Units 09:15 WBC 5.9 (3.5-10.8) 10^3/ul RBC 5.55 H (4.00-5.40) 10^6/ul Hgb 15.5 (14.0-18.0) g/dl Hct 46 (42-52) % MCV 82 (80-94) fL MCH 28 (27-31) pg MCHC 34 (31-36) g/dl RDW 14 (10.5-15) % Plt Count 165 (150-450) 10^3/ul MPV 8.9 (7.4-10.4) fL Neut % (Auto) 75.5 % Lymph % (Auto) 16.6 % [place] % (Auto) 6.3 % Eos % (Auto) 0.6 % Baso % (Auto) 1.0 % Absolute Neuts (auto) 4.4 (1.5-7.7) 10^3/ul Absolute Lymphs (auto) 1.0 (1.0-4.8) 10^3/ul Absolute Monos (auto) 0.4 (0-0.8) 10^3/ul Absolute Eos (auto) 0 (0-0.6) 10^3/ul Absolute Basos (auto) 0.1 (0-0.2) 10^3/ul Absolute Nucleated RBC 0 10^3/ul Nucleated RBC % 0 Result Diagrams: 03/09/18 09:15 03/09/18 09:15 Lab Statement: Any lab studies that have been ordered have been reviewed, and results considered in the medical decision making process. Chest Pain Course/Dx - Course Course Of Treatment: Pt. presenting with c/o CP. He is extremely anxious. 1mg PO ativan given. ECG done at 0847 shows a sinus rhythm of 77bpm, borderline right axis deviation, no ST elevation of depression, similar to prior tracing. CXR negative for acute findings per radiology. Labs unremarkable. On re-exam pt. is feeling much better. Family present. Pt. declines need for MHE. He request anxiety medication. Will rx a few days of atarax. To call the [facility] today to schedule a close f.u apt. WIll return to ER if sxs change or worsen. Pt. understands and agrees with plan. - Chest Pain Differential Diagnosis/HQI/PQRI: Acute PA, Chest Wall, GI Disease, Lower Respiratory Infection - Diagnoses Provider Diagnoses: Anxiety, Atypical chest pain Discharge - Sign-Out/Discharge Documenting (check all that apply): Patient Departure Patient Received Moderate/Deep Sedation with Procedure: No - Discharge Plan Condition: Improved Disposition: HOME Prescriptions: hydrOXYzine HCL TAB* [Atarax 25 MG TAB*] 25 mg PO QID PRN #12 tab PRN Reason: Anxiety Patient Education Materials: Chest Pain (ED), Anxiety (ED) Referrals: [facility] [Outside] Additional Instructions: Call the [facility] today to schedule a close follow up appointment Take medication as directed for anxiety Return to ER if symptoms change or worsen - Billing Disposition and Condition Condition: IMPROVED Disposition: Home
[2018-03-09 10:09] LABS: Albumin/Globulin Ratio 2.2 (1-3); BUN/Creatinine Ratio 10.7 (8-20); Calcium 10.3 mg/dL (8.6-10.3); EGFR African American 102.6 (>60); EGFR Non-African American 84.8 (>60); Globulin 2.3 g/dL (2-4); Magnesium 2.2 mg/dL (1.9-2.7); Potassium 4.3 mmol/L (3.5-5.0); Total Bilirubin 0.6 mg/dL (0.2-1.0); Total Protein 7.3 g/dL (6.4-8.9)
[2018-03-09 10:38] LABS: TSH (Thyroid Stimulating Horm) 1.28 mcIU/mL (0.34-5.60)
[2018-03-09 11:48] VITALS: BP 136/76
== END 2018-03-09 12:01 | disposition home or self-care (01) ==
LOC: ED 08:43
DX: F41.9 Anxiety disorder, unspecified (principal); R07.89 Other chest pain; F17.210 Nicotine dependence, cigarettes, uncomplicated
CPT/HCPCS: 36415; 71045; 80053; 83735; 84443; 84484; 85025; 93005; 99283; A9270-GY

== ENCOUNTER 2018-03-16 03:10 | Inpatient (IN) | payer SELFPAY ==
--- NOTE | 2018-03-16 03:55 | ED ---
Psychiatric Complaint - HPI Summary HPI Summary: This patient is a 32 year old M brought in by [place] Ocampo as 9.41 to ED with hx of depression and a chief complaint of SI with no plan. He split with his fianc and has been living apart with his kids as well for a couple of weeks. He stays with his parents currently. The patient rates the pain 0/10 in severity. Symptoms aggravated by recent stress from separation from fianc and kids. Symptoms alleviated by nothing.Has been hospitalized here in [facility] in 2017. He just started at [facility] today and saw Zoila at around [phone] who was the intake. They talked about his life hx. - History Of Current Complaint Chief Complaint: EDMentalHealth Time Seen by Provider: 03/16/18 03:27 Hx Obtained From: Patient Onset/Duration: Sudden Onset, Lasting Weeks, Still Present Severity Currently: None Character: Depressed Aggravating Factor(s): Recent Stress - separation from fianc and kids Alleviating Factor(s): Nothing Related History: Positive For: Prior Psychiatric Issues Has Suicidal: Reports: Thoughts. Denies: With A Plan - Allergies/Home Medications Allergies/Adverse Reactions: Allergies Allergy/AdvReac Type Severity Reaction Status Date / Time No Known Allergies Allergy Verified 03/16/18 03:50 Home Medications: Home Medications Lexapro 10 mg 10 mg PO DAILY 03/16/18 [History Confirmed 03/16/18] PMH/Surg Hx/FS Hx/Imm Hx Endocrine/Hematology History: Denies: Hx Diabetes Cardiovascular History: Denies: Hx Hypertension, Hx Myocardial Infarction Respiratory History: Reports: Hx Asthma - denies tx: states that when he was younger he had s/s of asthma attacks Neurological History: Reports: Hx Migraine - states he occasionally gets migraines- tx w/ apap and hot showers, Other Neuro Impairments/Disorders - brain tumor, s/p radiation therapy on 2008 Psychiatric History: Reports: Hx Anxiety, Hx Depression, Hx Suicide Attempt, Hx of Violent Episodes Against Others Denies: Hx Eating Disorder - Cancer History Cancer Type, Location and Year: Brain tumor, 2008 Hx Radiation Therapy: Yes - 2008. brain tumor - Surgical History Surgery Procedure, Year, and Place: rt 4th and 5th fingers Infectious Disease History: No Infectious Disease History: Denies: Traveled Outside the [place] in Last 30 Days - Family History Known Family History: Positive: Hypertension, Diabetes Negative: Cardiac Disease - Social History Alcohol Use: None Hx Substance Use: Yes Substance Use Type: Reports: Marijuana Substance Use Comment - Amount & Last Used: monthly Smoking Status (MU): Heavy Every Day Tobacco Smoker Type: Cigarettes Review of Systems Negative: Fever Positive: Depressed, Other - SI All Other Systems Reviewed And Are Negative: Yes Physical Exam - Summary Physical Exam Summary: VITAL SIGNS: Reviewed. GENERAL: Patient is a well-developed and nourished MALE who is lying comfortable in the stretcher. Patient is not in any acute respiratory distress. HEAD AND FACE: No signs of trauma. No ecchymosis, hematomas or skull depressions. No sinus tenderness. EYES: PERRLA, EOMI x 2, No injected conjunctiva, no nystagmus. EARS: Hearing grossly intact. Ear canals and tympanic membranes are within normal limits. MOUTH: Oropharynx within normal limits. NECK: Supple, trachea is midline, no adenopathy, no JVD, no carotid bruit, no c- spine tenderness, neck with full ROM. CHEST: Symmetric, no tenderness at palpation LUNGS: Clear to auscultation bilaterally. No wheezing or crackles. CVS: Regular rate and rhythm, S1 and S2 present, no murmurs or gallops appreciated. ABDOMEN: Soft, non-tender. No signs of distention. No rebound no guarding, and no masses palpated. Bowel sounds are normal. EXTREMITIES: FROM in all major joints, no edema, no cyanosis or clubbing. NEURO: Alert and oriented x 3. No acute neurological deficits. Speech is normal and follows commands. SKIN: Dry and warm PSYCH: Sad affect, cooperative, upset because of separation with fianc and kids. Triage Information Reviewed: Yes Vital Signs On Initial Exam: Initial Vitals Temp Pulse Resp BP Pulse Ox 98.8 F 66 18 124/81 98 03/16/18 03:17 03/16/18 03:17 03/16/18 03:17 03/16/18 03:17 03/16/18 03:17 Vital Signs Reviewed: Yes Diagnostics - Vital Signs Vital Signs Temp Pulse Resp BP Pulse Ox 03/16/18 03:17 98.8 F 66 18 124/81 98 - Laboratory Result Diagrams: 03/16/18 03:51 03/16/18 03:51 Lab Statement: Any lab studies that have been ordered have been reviewed, and results considered in the medical decision making process. Course/Dx - Course Assessment/Plan: This patient is a 32 year old M brought in by [facility] Ocampo as 9.41 to ED with hx of depression and a chief complaint of SI with no plan. He split with his fianc and has been living apart with his kids as well for a couple of weeks. Patient was medically cleared for MHE. Dr. Lamb will be admitting this patient. Patient understands and agrees with this plan. - Differential Dx/Clinical Impression Differential Diagnosis/HQI/PQRI: Positive: Depression Provider Diagnosis: Depression Discharge - Sign-Out/Discharge Documenting (check all that apply): Patient Departure - admit Patient Received Moderate/Deep Sedation with Procedure: No - Discharge Plan Condition: Stable Disposition: ADMITTED TO [facility] Referrals: No Primary Care Phys,NOPCP [Primary Care Provider] - - Billing Disposition and Condition Condition: STABLE Disposition: Admitted to [facility] - Attestation Statements Document Initiated by Laneibe: Yes Documenting Scribe: Cristian Stark Provider For Whom Yosi is Documenting (Include Credential): Monika Lopez MD Scribe Attestation: Cristian Cabral, scribed for Monika Lopez MD on 03/16/18 at 0638. Scribe Documentation Reviewed: Yes Provider Attestation: The documentation as recorded by the Cristian lyons accurately reflects the service I personally performed and the decisions made by Sami cantor MD Status of Scribe Document: Viewed
[2018-03-16 03:58] LABS: ABS Basophils 0 10^3/ul (0-0.2); ABS Eosinophils 0.1 10^3/ul (0-0.6); ABS Lymphocytes 1.9 10^3/ul (1.0-4.8); ABS Monocytes 0.6 10^3/ul (0-0.8); ABS Neutrophils 4.5 10^3/ul (1.5-7.7); ABS Nucleated RBC 0 10^3/ul; Eosinophil % 1.4 %; Hematocrit 42 % (42-52); Lymphocyte % 26.4 %; Mean Corpuscular HGB Conc 33 g/dl (31-36); Mean Corpuscular Hemoglobin 28 pg (27-31); Mean Corpuscular Volume 84 fL (80-94); Mean Platelet Volume 8.5 fL (7.4-10.4); Nucleated Red Blood Cells % 0.1; Platelet Count 149 10^3/ul (150-450); Red Blood Count 5.03 10^6/ul (4.00-5.40); Red Cell Distribution Width 14 % (10.5-15); White Blood Count 7.2 10^3/ul (3.5-10.8)
[2018-03-16 04:13] LABS: ALT 14 U/L (7-52); AST 17 U/L (13-39); Albumin 4.5 g/dL (3.2-5.2); Albumin/Globulin Ratio 2.4 (1-3); Alkaline Phosphatase 38 U/L (34-104); Anion Gap 5 mmol/L (2-11); BUN/Creatinine Ratio 9.5 (8-20); Blood Urea Nitrogen 9 mg/dL (6-24); CO2 Carbon Dioxide 29 mmol/L (22-32); Calcium 9.1 mg/dL (8.6-10.3); Chloride 107 mmol/L (101-111); EGFR African American 112.6 (>60); EGFR Non-African American 93.1 (>60); Globulin 1.9 g/dL (2-4); Glucose 108 mg/dL (70-100); Potassium 3.4 mmol/L (3.5-5.0); Sodium 141 mmol/L (135-145); Total Protein 6.4 g/dL (6.4-8.9)
[2018-03-16 04:33] LABS: Acetaminophen < 15 mcg/mL; Alcohol < 10 mg/dL (<10); Salicylate < 2.50 mg/dL (<30)
[2018-03-16 04:47] LABS: TSH (Thyroid Stimulating Horm) 0.55 mcIU/mL (0.34-5.60)
[2018-03-16] MEDS ORDERED: Potassium Chlor TAB* 20 MEQ TAB.ER PO ONE (04:48)
[2018-03-16 06:21] LABS: Urine Appearance Cloudy; Urine Bacteria Absent (Absent); Urine Bilirubin Negative (Negative); Urine Blood Negative (Negative); Urine Color Amber; Urine Glucose Negative (Negative); Urine Ketones Negative (Negative); Urine Nitrite Negative (Negative); Urine Protein 2+(100 mg/dL) (Negative); Urine Red Blood Cell 3+(>10/hpf) (Absent); Urine Specific Gravity 1.029 (1.010-1.030); Urine Squamous Epithelial Cell Present (Absent); Urine Urobilinogen Negative (Negative); Urine White Blood Cell 3+(>20/hpf) (Absent)
[2018-03-16 06:36] LABS: Barbiturates Urine Screen None Detected (None Detect); Benzodiazepine Urine Screen None Detected (None Detect); Urine Cannabinoids Screen Presumptive Positive (None Detect)
[2018-03-16] MEDS ORDERED: Mouth Piece, Nicotine* 1 EACH CARTRIDGE INH SCH (08:34)
[2018-03-16] MEDS ORDERED: Al Hydrox/Mg Hydrox/Simet LIQ* 30 ML UDC PO PRN (08:34)
[2018-03-16] MEDS ORDERED: Acetaminophen TAB* 325 MG PO PRN (08:34)
[2018-03-16] MEDS ORDERED: Citalopram TAB* 20 MG PO SCH (09:00)
[2018-03-16] MEDS ORDERED: hydrOXYzine HCL TAB* 25 MG PO PRN (10:40)
[2018-03-16] MEDS: Nicotine PATCH 14 MG/24 HR* PATCH TRANSDERM SCH (14:00)
[2018-03-16] MEDS: Vitamin THERAPEUTIC TAB PO SCH (14:01)
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
[2018-03-16] MEDS: Mirtazapine TAB* 15 MG PO SCH (20:35)
[2018-03-16] MEDS: Nicotine Patch Removal NOTE FOLLOW UP SCH (20:36)
[2018-03-17] MEDS: Nicotine Inhaler* 10 MG AMP INH PRN ×2 (08:48→18:11)
[2018-03-17] MEDS: Nicotine PATCH 14 MG/24 HR* PATCH TRANSDERM SCH (08:48)
[2018-03-17] MEDS: Vitamin THERAPEUTIC TAB PO SCH ×2 (08:49→08:50)
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
[2018-03-17] MEDS: Nicotine GUM* 2 MG PO PRN (18:12)
[2018-03-17] MEDS: Mirtazapine TAB* 15 MG PO SCH (20:28)
[2018-03-17] MEDS: Nicotine Patch Removal NOTE FOLLOW UP SCH (22:50)
[2018-03-18] MEDS: Nicotine PATCH 14 MG/24 HR* PATCH TRANSDERM SCH (09:08)
[2018-03-18] MEDS: Nicotine Inhaler* 10 MG AMP INH PRN ×2 (09:08→16:50)
[2018-03-18] MEDS: Vitamin THERAPEUTIC TAB PO SCH (09:09)
[2018-03-18] MEDS: Nicotine GUM* 2 MG PO PRN (17:39)
[2018-03-18] MEDS: Nicotine Patch Removal NOTE FOLLOW UP SCH (21:12)
[2018-03-18] MEDS: Mirtazapine TAB* 15 MG PO SCH (21:12)
[2018-03-19] MEDS: Vitamin THERAPEUTIC TAB PO SCH (07:46)
[2018-03-19] MEDS: Nicotine PATCH 14 MG/24 HR* PATCH TRANSDERM SCH (07:46)
[2018-03-19] MEDS: Nicotine Inhaler* 10 MG AMP INH PRN ×3 (07:46→20:51)
[2018-03-19] MEDS: Nicotine GUM* 2 MG PO PRN ×2 (13:36→20:51)
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
[2018-03-19] MEDS: Mirtazapine TAB* 15 MG PO SCH (20:51)
[2018-03-19] MEDS: Nicotine Patch Removal NOTE FOLLOW UP SCH (21:29)
[2018-03-20 08:24] VITALS: BP 116/85
[2018-03-20] MEDS: Nicotine PATCH 14 MG/24 HR* PATCH TRANSDERM SCH (09:01)
[2018-03-20] MEDS: Vitamin THERAPEUTIC TAB PO SCH (09:01)
[2018-03-20] MEDS: Nicotine Inhaler* 10 MG AMP INH PRN (09:05)
--- NOTE | 2018-03-20 11:48 | PN ---
MHU: Group Therapy Note - Service Type Service Type: [id number] Group Psychotherapy - Cognitive Behavioral Group Therapy ( CBT):Patient was attentive and participatory in CBT programming this morning, and remained in good behavioral control. Patient expressed positive insights regarding relevant treatment interventions and goals.
--- NOTE | 2018-03-21 14:10 | DS ---
CC: [facility] DISCHARGE SUMMARY: DATE OF ADMISSION: 03/16/18 DATE OF DISCHARGE: 03/20/18 SUPERVISING PSYCHIATRIST: Dr. Joaquim Prakash. DISCHARGE DIAGNOSES: 1. Unspecified depressive disorder. 2. Cannabis use disorder. 3. Tobacco use disorder. 4. Adjustment disorder with mixed disturbance of mood and conduct. CONDITION AT TIME OF DISCHARGE: Improved. The patient has been euthymic with bright affect, safe on all checks and in behavioral control. He has not voiced suicidal ideation or passive wish. Maury vega has denied these throughout the admission. Due to complaints of insomnia and poor appetite along w ith depressive symptoms, he agreed to a trial of mirtazapine and thus far has responded well. He and the mother of his child met with this health technical writer and Social Work on day of discharge to discuss communic ation amongst them. The patient exhibited insight into his involvement in relationship conflict. St frank shared that she would prefer to prioritize co-parenting at this time versus resuming romantic relationship. Joe stated understanding and agrees to remain living with his parents as well as co ntinue with outpatient mental health. MENTAL STATUS EXAM: Joe is a thin-framed 32-year-old white male who appears his stated age. He is casually dressed and adequately groomed. ADLs are completed. He is cooperative and answers question s fully. The patient is alert and oriented x3. Eye contact is good. Speech is soft and articulate. Mood is euthymic with full range of affect. No abnormal psychomotor activity noted. Thought proce ss is logical, goal directed, and coherent. Thought content is negative for passive wish or smith icidal ideation. He denies HI or . He denies auditory or visual hallucinations. Insight and judg ment are fair, improved. The patient appears to have an average intellect by virtue of vocabulary. INSTRUCTIONS GIVEN TO PATIENT: A. Medications: Mirtazapine 15 mg p.o. q.h.s., nicotine patch 14 mg transderm daily, hydroxyzine 25 mg p.o. q.i.d. p.r.n. anxiety. B. Diet: Regular. C. Activity: Amb ulation as tolerated. Tobacco cessation was provided to the patient. There are no pending labs or d iagnostic studies. D. Followup care: He was given a second intake appointment with Zoila at [facility] and an intake appointment for the [facility] at [facility]. He was given information about [facility] for establishing primary care. E. Substance abu se followup: The patient declined referrals to substance use treatment and reported desire to decrea se or abstain from cannabis use. HISTORY OF PRESENT ILLNESS: Joe is a 32-year-old white male, unemployed, tenuously domiciled with his parents, who presented to the ED with suicidal ideation in the context of arguing of with his sig nificant other, Zena. Please see full H and P documented by this health technical writer from 03/16/18 for full a dmission data. HOSPITAL COURSE: Part A. Reason for admission: The patient presented to the emergency department vi a police after his parents called 911. The patient had expressed suicidal ideation to his parents an d continued to endorse suicidal ideation with plan. Part B. Psychiatric treatment rendered: The patient was admitted to adult behavioral services unit on involuntary status due to poor insight and history of violence. Code status is full. He was plac ed on 15-minute checks for safety, which was decreased to 30-minute observation and he was allowed to staff pass. He participated fully in milieu, psychoeducational groups with staff, and interactions with peers. The patient gave informed consent to trial mirtazapine. He reported improved mood, impr noel sleep and appetite. He denied need for p.r.n. medications for anxiety. As stated above, the patient was fully participatory in programming. He was safe on all checks and d enied suicidal ideation. He reported readiness to be discharged home and participated in discharge m eeting with his significant other. The patient was appreciative of appointment set for him at [facility] and was given discharge instructions by nursing staff. ROYER MENDOZA, LYRIC [id number]/[facility] #: [id number]
== END 2018-03-20 12:59 | disposition home or self-care (01) | DRG 885 ==
LOC: ED 03:10 → BSU 07:31 → ED 08:49
PROVIDERS: ADMIT Psychiatry & Neurology Psychiatry; ATTEND Psychiatry & Neurology Psychiatry
DX: F33.8 Other recurrent depressive disorders (principal); R45.851 Suicidal ideations; F43.25 Adjustment disorder with mixed disturbance of emotions and conduct; F17.210 Nicotine dependence, cigarettes, uncomplicated; F12.90 Cannabis use, unspecified, uncomplicated; J45.909 Unspecified asthma, uncomplicated; F41.9 Anxiety disorder, unspecified; Z79.899 Other long term (current) drug therapy
CPT/HCPCS: 36415; 80053; 80307; 80320; 80329; 81003; 81015; 84443; 85025; 87086; 99222; 99231; 99238; 99284; A9270-GY; G0480

== ENCOUNTER 2019-01-06 15:31 | Emergency (ER) | payer OTHER ==
[2019-01-06] MEDS ORDERED: NS 0.9% 1000 ML** 1,000 ML IV ONE ×2 (15:45→16:13)
[2019-01-06] MEDS ORDERED: Ondansetron INJ* 2 MG/ML VIAL IV ONE ×3 (15:45→18:43)
--- NOTE | 2019-01-06 16:01 | ED ---
Abdominal Pain/Male - HPI Summary HPI Summary: The pt is a 33 yr old male presenting to [facility] c/o abd pain with N/V/D beginning 0400 this date. He notes that the vomiting and diarrhea has been intermittent every hour. He mentions that his 1 yr old daughter had similar symptoms 3 days LABOR SPECIALIST. He rates his current pain severity a 4/10. No aggravating or alleviating factors noted. He also reports some hematemesis and hot/cold flashes. - History of Current Complaint Chief Complaint: EDAbdPain Stated Complaint: N,V,D Time Seen by Provider: 01/06/19 15:44 Hx Obtained From: Patient Onset/Duration: Sudden Onset, Lasting Hours, Still Present Timing: Intermittent, Lasting Hours Severity Initially: Moderate Severity Currently: Moderate Pain Intensity: 4 Pain Scale Used: 0-10 Numeric Location: Diffuse Aggravating Factor(s): Nothing Alleviating Factor(s): Nothing Associated Signs And Symptoms: Positive: Nausea, Vomiting, Diarrhea, Other - pos - hot/cold flashes, hematemesis - Allergies/Home Medications Allergies/Adverse Reactions: Allergies Allergy/AdvReac Type Severity Reaction Status Date / Time No Known Allergies Allergy Verified 03/16/18 03:50 PMH/Surg Hx/FS Hx/Imm Hx Endocrine/Hematology History: Denies: Hx Diabetes, Hx Thyroid Disease Cardiovascular History: Denies: Hx Cardiac Arrest, Hx Hypotension, Hx Hypertension, Hx Myocardial Infarction Respiratory History: Reports: Hx Asthma GI History: Denies: Hx Irritable Bowel History: Denies: Hx Kidney Stones Sensory History: Denies: Hx Contacts or Glasses, Hx Hearing Aid Opthamlomology History: Denies: Hx Contacts or Glasses Neurological History: Reports: Hx Migraine, Other Neuro Impairments/Disorders - brain tumor, s/p radiation therapy on 2008 Psychiatric History: Reports: Hx Anxiety, Hx Depression, Hx Inpatient Treatment - Last [facility] admission 02/2016, Hx Community Mental Health Tx, Hx Suicide Attempt , Hx of Violent Episodes Against Others, Hx Substance Abuse Denies: Hx Eating Disorder - Cancer History Cancer Type, Location and Year: Brain tumor, 2008 Hx Radiation Therapy: Yes - 2008. brain tumor - Surgical History Surgery Procedure, Year, and Place: rt 4th and 5th fingers Infectious Disease History: No Infectious Disease History: Denies: Traveled Outside the [place] in Last 30 Days - Family History Known Family History: Positive: Hypertension, Diabetes Negative: Cardiac Disease - Social History Alcohol Use: None Alcohol Amount: Reports no ETOH consumption in 1yr Hx Substance Use: Yes Substance Use Type: Reports: Marijuana Substance Use Comment - Amount & Last Used: monthly Smoking Status (MU): Light Every Day Tobacco Smoker Type: Cigarettes Review of Systems Constitutional: Other - pos - hot/cold flashes Positive: Abdominal Pain, Vomiting, Diarrhea, Nausea, Other - pos - hematemesis All Other Systems Reviewed And Are Negative: Yes Physical Exam - Summary Physical Exam Summary: Constitutional: Well-developed, Well-nourished, Alert. (-) Distressed Skin: Warm, Dry HENT: Normocephalic; Atraumatic Eyes: Conjunctiva normal Neck: Musculoskeletal ROM normal neck. (-) JVD, (-) Stridor, (-) Tracheal deviation Cardio: Rhythm regular, rate normal, Heart sounds normal; Intact distal pulses; The pedal pulses are 2+ and symmetric. Radial pulses are 2+ and symmetric. (-) Murmur Pulmonary/Chest wall: Effort normal. (-) Respiratory distress, (-) Wheezes, (-) Rales Abd: Soft, (-) tenderness, (-) Distension, (-) Guarding, (-) Rebound Musculoskeletal: (-) Edema Lymph: (-) Cervical adenopathy Neuro: Alert, Oriented x3 Psych: Mood and affect Normal Triage Information Reviewed: Yes Vital Signs On Initial Exam: Initial Vitals Temp Pulse Resp BP Pulse Ox 98.3 F 69 16 115/59 98 01/06/19 15:37 01/06/19 15:37 01/06/19 15:37 01/06/19 15:37 01/06/19 15:37 Vital Signs Reviewed: Yes Procedures - Sedation Patient Received Moderate/Deep Sedation with Procedure: No Diagnostics - Vital Signs Vital Signs Temp Pulse Resp BP Pulse Ox 01/06/19 15:37 98.3 F 69 16 115/59 98 - Laboratory Result Diagrams: 01/06/19 15:56 01/06/19 15:56 Lab Statement: Any lab studies that have been ordered have been reviewed, and results considered in the medical decision making process. Abdominal Pain Male Course/Dx - Course Course Of Treatment: The pt is a 33 yr old male presenting to [facility] c/o abd pain with N/V/D beginning 0400 this date. He notes that the vomiting and diarrhea has been intermittent every hour. He mentions that his 1 yr old daughter had similar symptoms 3 days LABOR SPECIALIST. Test results normal except for RBC 5.54, Plt Count 141, Absolute Neuts 9.5, Absolute Lymphs 0.3, and Glucose 110. Final Dx is gastroenteritis. Pt will be discharged home with PCP follow up. Pt is agreeable with this plan. - Diagnoses Provider Diagnoses: Gastroenteritis Discharge ED - Sign-Out/Discharge Documenting (check all that apply): Patient Departure - discharge - Discharge Plan Condition: Stable Disposition: HOME Prescriptions: Ondansetron TAB* [Zofran 4 MG Tab*] 4 mg PO Q6H PRN #12 tab PRN Reason: Nausea/Vomiting Patient Education Materials: Gastroenteritis (ED) Referrals: [facility] [Outside] - 3 Days Additional Instructions: Please follow up with your primary care provider within 3 days. Please return to the ED for any new or worsening symptoms. - Attestation Statements Document Initiated by Scribe: Yes Documenting Scribe: César Frias Provider For Whom Laneibe is Documenting (Include Credential): Duong Ibarra DO Scribe Attestation: César Cabral, scribed for Duong Ibarra DO on 01/06/19 at 1812.
[2019-01-06 16:20] LABS: ABS Eosinophils 0.1 10^3/ul (0-0.6); ABS Lymphocytes 0.3 10^3/ul (1.0-4.8); ABS Monocytes 0.3 10^3/ul (0-0.8); ABS Neutrophils 9.5 10^3/ul (1.5-7.7); Eosinophil % 0.9 %; Hematocrit 45 % (42-52); Hemoglobin 15.4 g/dL (14.0-18.0); Lymphocyte % 2.5 %; Mean Corpuscular HGB Conc 34 g/dL (31-36); Mean Corpuscular Hemoglobin 28 pg (27-31); Mean Corpuscular Volume 82 fL (80-94); Mean Platelet Volume 8.6 fL (7.4-10.4); Platelet Count 141 10^3/uL (150-450); Red Blood Count 5.53 10^6 /uL (4.18-5.48); Red Cell Distribution Width 15 % (10-15); White Blood Count 10.2 10^3/uL (3.5-10.8)
[2019-01-06 16:21] LABS: Albumin 4.2 g/dL (3.2-5.2); Albumin/Globulin Ratio 1.7 (1-3); BUN/Creatinine Ratio 17.9 (8-20); EGFR African American 140.5 (>60); EGFR Non-African American 116.1 (>60); Globulin 2.5 g/dL (2-4); Total Bilirubin 0.8 mg/dL (0.2-1.0); Total Protein 6.7 g/dL (6.4-8.9)
[2019-01-06 16:29] LABS: Potassium 4.2 mmol/L (3.5-5.0)
[2019-01-06 18:41] VITALS: BP 119/70
== END 2019-01-06 18:52 | disposition home or self-care (01) ==
LOC: ED 15:31
DX: K52.9 Noninfective gastroenteritis and colitis, unspecified (principal); F17.210 Nicotine dependence, cigarettes, uncomplicated
CPT/HCPCS: 36415; 80053; 85025; 96361; 96374; 96376; 99283; J2405

== ENCOUNTER 2019-03-21 15:57 | Emergency (ER) | payer OTHER ==
[2019-03-21] MEDS ORDERED: NS 0.9% 1000 ML** 1,000 ML IV ONE (16:04)
[2019-03-21] MEDS ORDERED: Ketorolac INJ* 30 MG/ML 1 ML VIAL IV PUSH ONE (16:04)
--- NOTE | 2019-03-21 16:04 | ED ---
Influenza-Like Illness - HPI Summary HPI Summary: 33 year old M brought in by EMS to [facility] complains of fever, cough, nausea, dizziness, light headedness, congestion, headache, myaglia, and tingliness in arms, chest, face, hands since Tuesday03/18/2019, and vomiting/diarrhea yesterday 03/20/2019. No back pain, neck pain, abdominal pain. The patient rates the pain 6 /10 in severity. Symptoms aggravated by nothing. Symptoms alleviated by nothing. Patient did not receive his influenza vaccine this year per EMS. Patient states he hasn't been around anyone with influenza. No recent travel. Current smoker. - History of Current Complaint Hx Obtained From: Patient, EMS Onset/Duration: Lasting Days - 3, Still Present Severity: Moderate - 6/10 - Allergy/Home Medications Allergies/Adverse Reactions: Allergies Allergy/AdvReac Type Severity Reaction Status Date / Time No Known Allergies Allergy Verified 03/16/18 03:50 PMH/Surg Hx/FS Hx/Imm Hx Endocrine/Hematology History: Denies: Hx Diabetes, Hx Thyroid Disease Cardiovascular History: Denies: Hx Cardiac Arrest, Hx Hypotension, Hx Hypertension, Hx Myocardial Infarction Respiratory History: Reports: Hx Asthma GI History: Denies: Hx Irritable Bowel History: Denies: Hx Kidney Stones Sensory History: Denies: Hx Contacts or Glasses, Hx Hearing Aid Opthamlomology History: Denies: Hx Contacts or Glasses Neurological History: Reports: Hx Migraine, Other Neuro Impairments/Disorders - brain tumor, s/p radiation therapy on 2008 Psychiatric History: Reports: Hx Anxiety, Hx Depression, Hx Inpatient Treatment - Last [facility] admission 02/2016, Hx Community Mental Health Tx, Hx Suicide Attempt , Hx of Violent Episodes Against Others, Hx Substance Abuse Denies: Hx Eating Disorder - Cancer History Cancer Type, Location and Year: Brain tumor, 2008 Hx Radiation Therapy: Yes - 2008. brain tumor - Surgical History Surgery Procedure, Year, and Place: rt 4th and 5th fingers - Family History Known Family History: Positive: Hypertension, Diabetes Negative: Cardiac Disease - Social History Alcohol Use: None Alcohol Amount: Reports no ETOH consumption in 1yr Hx Substance Use: Yes Substance Use Type: Reports: Marijuana Substance Use Comment - Amount & Last Used: monthly Hx Tobacco Use: Yes Smoking Status (MU): Light Every Day Tobacco Smoker Type: Cigarettes Review of Systems Positive: Fever Positive: Other - congestion Positive: Cough Positive: Vomiting, Diarrhea, Nausea. Negative: Abdominal Pain Musculoskeletal: Negative - back pain, neck pain Positive: Myalgia Neurological/Mental Status: Other - Dizziness, light headedness, tingliness in arms, chest, face, hands Positive: Headache All Other Systems Reviewed And Are Negative: Yes Physical Exam - Summary Physical Exam Summary: Constitutional: Well-developed, Well-nourished, Alert. (-) Distressed. He appears fatigued. Skin: Warm, Dry HENT: Normocephalic; Atraumatic. Oropharynx appears normal. No exudate Eyes: Conjunctiva normal Neck: Musculoskeletal ROM normal neck. (-) JVD, (-) Stridor, (-) Tracheal deviation Cardio: Rhythm regular, rate normal, Heart sounds normal; Intact distal pulses; The pedal pulses are 2+ and symmetric. Radial pulses are 2+ and symmetric. (-) Murmur Pulmonary/Chest wall: Effort normal. (-) Respiratory distress, faint wheezes during cough, (-) Rales Abd: Soft, (-) tenderness, (-) Distension, (-) Guarding, (-) Rebound Musculoskeletal: (-) Edema Lymph: (-) Cervical adenopathy Neuro: Alert, Oriented x3 Psych: Mood and affect Normal Triage Information Reviewed: Yes Vital Signs Reviewed: Yes Procedures - Sedation Patient Received Moderate/Deep Sedation with Procedure: No Diagnostics - Laboratory Result Diagrams: 03/21/19 16:16 03/21/19 16:16 Lab Statement: Any lab studies that have been ordered have been reviewed, and results considered in the medical decision making process. Flu Symptom Course/Dx - Course Course Of Treatment: 33 y/o M brought in by EMS complains of fever, cough, nausea, dizziness, light headedness, congestion, headache, myaglia, and tingliness in arms, chest, face, hands since Tuesday03/18/2019, and vomiting/ diarrhea yesterday 03/20/2019. Patient did not receive his influenza vaccine this year per EMS. Patient states he hasn't been around anyone with influenza. Current smoker. Upon physical exam, he appears fatigued. Oropharynx appears normal. No exudate. Faint wheezes during cough. Bloodwork results with no significant abnormalities except for MCV 79, platelet 86, potassium 3.4, glucose 109. In the ED course, patient was given normal saline fluids, Toradol , Zofran. Influenza A negative. Influenza B positive. Patient will be discharged home with prescription for Zofran and follow up from [facility] in 2-3 days. Patient was instructed to return to Emergency Department for new or worsening symptoms. Patient understands and is agreeable to this plan. - Diagnoses Provider Diagnoses: Influenza B Discharge ED - Sign-Out/Discharge Documenting (check all that apply): Patient Departure - Discharge Plan Condition: Stable Disposition: HOME Prescriptions: Ondansetron TAB* [Zofran 4 MG Tab*] 4 mg PO Q6H PRN #16 tab PRN Reason: Nausea/Vomiting Patient Education Materials: Influenza (ED) Referrals: [facility] [Outside] - 2 Days Additional Instructions: Follow up with [facility] in 2-3 days. Return to the Emergency Department for new or worsening symptoms. - Billing Disposition and Condition Condition: STABLE Disposition: Home - Attestation Statements Document Initiated by Scribe: Yes Documenting Scribe: La joya Provider For Whom Yosi is Documenting (Include Credential): Hema Ibarra DO Scribe Attestation: La Cabral, scribed for Hema Ibarra DO on 03/21/19 at 1829. Scribe Documentation Reviewed: Yes Provider Attestation: The documentation as recorded by the La lyons accurately reflects the service I personally performed and the decisions made by , Hema Ibarra DO Status of Scribe Document: Viewed
[2019-03-21 16:32] LABS: Hematocrit 42 % (42-52); Hemoglobin 14.9 g/dL (14.0-18.0); Mean Corpuscular HGB Conc 35 g/dL (31-36); Mean Corpuscular Hemoglobin 28 pg (27-31); Mean Corpuscular Volume 79 fL (80-94); Red Blood Count 5.34 10^6 /uL (4.18-5.48); Red Cell Distribution Width 14 % (10-15); White Blood Count 4.1 10^3/uL (3.5-10.8)
[2019-03-21 16:37] LABS: Influenza B Molecular POSITIVE (Negative)
[2019-03-21 16:47] LABS: EGFR African American 105.5 (>60); EGFR Non-African American 87.2 (>60); Potassium 3.4 mmol/L (3.5-5.0)
[2019-03-21 16:57] LABS: ABS Monocytes 0.6 10^3/ul (0-0.8); ABS Neutrophils 2.6 10^3/ul (1.5-7.7); Lymphocyte % 23.8 %; Mean Platelet Volume 8.5 fL (7.4-10.4); Platelet Count 86 10^3/uL (150-450)
[2019-03-21] MEDS ORDERED: Ondansetron INJ* 2 MG/ML VIAL IV ONE (16:57)
[2019-03-21 17:28] VITALS: BP 117/64
== END 2019-03-21 17:35 | disposition home or self-care (01) ==
LOC: ED 15:57
DX: J10.1 Influenza due to other identified influenza virus with other respiratory manifestations (principal); J45.909 Unspecified asthma, uncomplicated; F41.9 Anxiety disorder, unspecified; F32.9 Major depressive disorder, single episode, unspecified; F17.210 Nicotine dependence, cigarettes, uncomplicated; Z85.841 Personal history of malignant neoplasm of brain
CPT/HCPCS: 36415; 80048; 85025; 85060; 96361; 96374; 96375; 99282; J1885; J2405